=== PATIENT | female | born 1945 | race Caucasian/White ===

== ENCOUNTER 2024-04-20 22:07 | Emergency (ER) | payer MEDICAID, SELFPAY ==
[2024-04-20] VITALS (8 sets, daily range): BP systolic 174–212; BP diastolic 61–89
--- NOTE | 2024-04-20 22:58 | ED.GENMED ---
History of Present Illness
General
Chief Complaint: Blood Pressure Problem
Source: patient
Exam Limitations: none
Time Seen by Provider: 04/20/24 22:47
History of Present Illness
History of Present Illness:
See MDM
Past History
Past History
ED Past Medical History: HTN and Hypercholesterolemia
ED Past Surgical History: Appendectomy
Social History
Tobacco: Non-smoker
Alcohol: None
Phy Exam
Physical Exam
Physical Exam:
See MDM
Course
Orders/Labs/Results
Orders:
Orders
04/20/24 22:56
HydrALAZINE [Apresoline] 10 mg IV NOW STA
04/20/24 22:57
Electrocardiogram (*1) Urgent
Reason for Study: Hypertension, Benign
CT Head W/o Iv Contrast Urgent
Comment:
Reason For Exam: Dizzy, headache
EKG- Treatment ONCE
04/20/24 23:14
Complete Blood Count/With Diff Urgent
Comprehensive Metabolic Panel Urgent
Troponin I Urgent
04/21/24 00:17
Lorazepam [Ativan] 1 mg IV NOW STA
Abnormal Lab Results
04/20/24
23:14
Hct 35.9 L %
(37.0-47.0)
MCV 80.9 L fL
(81.0-99.0)
Carbon Dioxide 31 H mmol/L
(22-30)
BUN 34 H mg/dl
(7-17)
Glucose 126 H mg/dl
(70-99)
04/20/24 23:14
04/20/24 23:14
Vital Signs
Initial and Last Documented VS:
Initial Vital Signs
Temp Pulse Resp BP Pulse Ox
97.8 F 67 16 212/89 98
04/20/24 22:11 04/20/24 22:11 04/20/24 22:11 04/20/24 22:11 04/20/24 22:11
Last Documented Vital Signs
Temp Pulse Resp BP Pulse Ox
97.8 F 63 16 154/70 95
04/20/24 22:11 04/21/24 00:49 04/21/24 00:49 04/21/24 00:49 04/21/24 00:49
MDM/Problems Addressed
Differential Diagnosis Includes:
HPI and MDM Narrative:
79-year-old female presenting for evaluation of dizziness and high blood pressure. Daughter at bedside indicating that she has been under a lot of stress recently. Blood pressure at home was 220/110. It remained elevated on arrival to the
emergency department. She is already on 3 antihypertensive medicines (Lisinopril, HCTZ, Metoprolol). Will, blood pressure is improving and patient states her dizziness and headache have improved.
There was no cerebellar signs on exam. No reproducible dizziness with [place]. Will obtain basic blood work, CT head, EKG and give a dose of hydralazine. Will consider writing a as needed hydralazine dose until they can speak to the PCP to
further evaluate the blood pressure
Physical exam
General: Well appearing and non-toxic
HEENT: protecting airway. EOMI. No nystagmus
Neck: supple
CV: No evidence of cyanosis. Regular rate and rhythm
Resp: No accessory muscle use
Abd: Non-distended
Extremities: No deformities. No leg edema
Neuro: alert. Normal [id number] bilaterally
Psych: Normal affect
Skin: Intact
Problems Addressed including Acute and Chronic Conditions affecting care:
1. Hypertension
Acuity: acute
Prognosis: stable
Details: Symptoms appear to be improving. Will give dose of hydralazine and obtain basic blood work to rule out endorgan damage
2. Dizziness
Acuity: acute
Prognosis: stable
Details: Will obtain CT head to rule intracranial hemorrhage given the hypertension and bradycardia
Updates
Other than mild elevated BUN, rest of the blood work without clinical significance and CT head is negative. On reevaluation after hydralazine, the blood pressure did spike back up she became shaky and tremulous. Will give dose of Ativan
On reassessment after Ativan, all symptoms resolved. Patient feels much better. Daughter believes this could be anxiety related. I will write for short prescription of Ativan as needed. Regardless of the fact that it helped, she needs to follow
to discuss her blood pressure and her mental health. Daughter agrees
Differential Diagnosis (but not limited to): Vertigo, dehydration, anxiety, hypertension
Testing considered: Urinalysis
Drug therapy (if applicable): OTC meds, please see d/c instruction regarding Rx drugs
Amount and/or Complexity of Data Reviewed
Clinical info obtained from: Patient. Daughter states she has been under a lot of stress recently
External data reviewed: N/A
Labs I independently reviewed (but not limited to): Troponin normal
Radiology: The CT scan was personally and independently reviewed. In addition, official CT report reviewed.
Pulse Ox: not hypoxic
EKG independently reviewed: Sinus rhythm, normal axis, no STEMI
Housing Specialist: N/A
Critical Care: N/A
Risk of Complication:
Social Determinants of health: Good social support
Discussed with other providers: N/A
Escalation of Care includes Admit/Obs: After being observed in the Emergency Department, pt stable for discharge.
Occasional wrong word or 'sound a like' substitutions may have occurred due to the inherent limitations of voice recognition software. Read the chart carefully and recognize, using context, where substitutions have occurred.
*Critical Care Note
Total Time (30-74mins, 75-104mins- exclusive of procedures): Not Applicable
ED Attending Note
-
Portions of this chart may have been created with voice recognition software.� Occasional wrong word or��sound alike� substitutions may have occurred due to the inherent limitations of voice recognition software.
Discharge Plan
Departure
Patient Disposition: Home (Routine Discharge)
Date of Disposition: 04/21/24
Time of Disposition: 01:07
Patient with high blood pressure during this ER visit?: Yes
Discharge Problem:
HTN (hypertension)
Instructions: High Blood Pressure (DC), BLOOD PRESSURE
Prescriptions:
New
lorazepam [Ativan] 1 mg tablet
1 mg PO BID PRN (Reason: Anxiety) Qty: 14 0RF
No Action
losartan 25 mg Tablet
25 mg PO DAILY
hydrochlorothiazide 25 mg Tablet
25 mg PO DAILY
metoprolol succinate
25 mg PO
Referrals:
Eli Junior MD [Family Provider] -
Activity Restrictions/Additional Instructions:
Please return for any worsening symptoms.
You may return at any time if you have further concerns.
Please follow up with your doctor at the first available appointment, preferably this week.
You need to discuss your uncontrolled blood pressure and your anxiety.
Thank you for choosing [facility].
Interventions
Interventions:
*Risk Screen - Suicide Last Done: 04/20/24 22:11
*General Assessment Last Done: 04/20/24 22:11
*Neglect/Abuse Screening Last Done: 04/20/24 22:11
ED- Fall Risk Assessment Last Done: 04/20/24 22:11
*ED COVID-19 Vaccine History Last Done: 04/20/24 22:11
ED- Cardiac Assessment Last Done: 04/20/24 23:37
ED- Neurological Assessment Last Done: 04/20/24 23:37
ED- Pulmonary Assessment Last Done: 04/20/24 23:37
Discharge Date and Time
Print Language: TANZANIAN
[2024-04-20] MEDS: APRESOLINE 10 MG IV (23:22)
[2024-04-20 23:26] LABS: % Basophils 0.5 % (0-2); % Eosinophils 0.3 % (0-6); % Immature Granulocytes 0.5 % (0-0.5); % Lymphocytes 27.4 % (20.5-51.1); % Monocytes 7.2 % (1.7-9.3); % Neutrophils 64.1 % (42.2-75.2); Absolute Lymphocytes 1.7 10^3/uL (1.2-3.4); Absolute Monocytes 0.5 10^3/uL (0.1-0.6); Hematocrit 35.9 % (37.0-47.0); Hemoglobin 12.2 g/dL (12.0-16.0); Mean Corpuscular Hgb 27.5 pg (27.0-31.0); Mean Corpuscular Volume 80.9 fL (81.0-99.0); Mean Platelet Volume 9.4 fL (7.4-10.4); Nucleated Red Blood Cells % 0 %; Platelet Count 246 10^3/uL (130-400); Red Blood Cell Count 4.44 10^6/uL (4.20-5.40); Red Cell Dist. Width 13.6 % (11.5-14.5); White Blood Cell Count 6.2 10^3/uL (4.8-10.8)
[2024-04-20 23:47] LABS: ALT (SGPT) 20 U/L (0-35); AST (SGOT) 23 U/L (14-36); Albumin 4.6 g/dl (3.5-5.0); Alkaline Phosphatase 71 U/L (38-126); Blood Urea Nitrogen 34 mg/dl (7-17); Calcium 10.2 mg/dl (8.4-10.2); Carbon Dioxide 31 mmol/L (22-30); Chloride 98 mmol/L (98-107); Glucose 126 mg/dl (70-99); Potassium 4.5 mmol/L (3.5-5.1); Sodium 138 mmol/L (135-145); Total Bilirubin 0.7 mg/dl (0.2-1.3); Total Protein 6.8 g/dl (6.3-8.2); eGFR > 60.00
[2024-04-20 23:59] LABS: Troponin I < 0.012 ng/ml
[2024-04-21] VITALS (8 sets, daily range): BP systolic 137–193; BP diastolic 55–99; BMI 40.8
[2024-04-21] MEDS: ATIVAN 1 MG IV (00:21)
== END 2024-04-21 01:38 | disposition home or self-care (01) ==
LOC: EMR 22:07
PROVIDERS: EMERGENCY PHYSICIAN Student in an Organized Health Care Education/Training Program; FAMILY PHYSICIAN Internal Medicine
DX: I10 Essential (primary) hypertension (principal); R42 Dizziness and giddiness; R51.9 Headache, unspecified; E78.00 Pure hypercholesterolemia, unspecified; Z73.3 Stress, not elsewhere classified
CPT/HCPCS: 99285; 96374; 96375; 70450; 80053; 84484; 85025; 93005

== ENCOUNTER 2024-10-22 01:15 | Inpatient (IN) | payer MEDICAID, SELFPAY ==
[2024-10-21 19:07] VITALS: BP 116/69
[2024-10-21 20:50] VITALS: BMI 41.0
--- NOTE | 2024-10-21 21:11 | ED.GENMED ---
History of Present Illness
General
Chief Complaint: Musculo-Skeletal Complaint
Time Seen by Provider: 10/21/24 20:49
History of Present Illness
History of Present Illness:
Patient presents with swelling to the left leg. Notes that she had injections in the left knee 3 weeks ago. Today she noticed that the leg was more swollen and tight. She denies any pain in the leg. Denies any fevers or chills.
Past History
Past History
ED Past Medical History: HTN and Hypercholesterolemia
ED Past Surgical History: Appendectomy
Social History
Tobacco: Non-smoker
Alcohol: None
Phy Exam
Physical Exam
Physical Exam:
General: No acute distress
Head: NCAT
Neck, Normal in appearance, no swelling
Respiratory: No Respiratory distress
Abdomen: No distension
Ext: Left lower extremity is diffusely swollen with some discoloration and darkening. Palpable pedal pulses. Sensation is intact to light touch. There is no significant joint effusion. There is no tenderness or pain with range of motion of the
knee
Neuro: GARCIA, AOx4
Psych: Normal affect
Skin: Normal color
Course
Orders/Labs/Results
Orders:
Orders
10/21/24 19:15
US Periph Venous LOWER Ext LT Urgent
Comment:
Reason For Exam: swelling, pain
10/21/24 21:13
Knee, Left 4 or More Views [CR Knee - Left 4 Or More View*] Urgent
Comment:
Reason For Exam: swelling
10/21/24 23:55
Complete Blood Count/With Diff Urgent
Comprehensive Metabolic Panel Urgent
PTT Urgent
Comment: Obtain baseline before beginning heparin infusion if not already collected
Prothrombin Time Urgent
10/22/24 00:19
Heparin 7,600 units IV NOW STA
10/22/24 00:20
Notify MD As Directed
Notify physician if: Call provider for further orders if PTT is greater than or equal to 200 per heparin
infusion protocol.
Nursing to Place Non Medication Order As Directed
Physician Order: PTT 6 hours after initial start of Heparin infusion
Above order entered?: Yes
10/22/24 00:27
Heparin 7,600 units IV PRN PRN
10/22/24 00:28
Heparin 3,800 units IV PRN PRN
10/22/24 00:30
CT Chest/abd/pelvis Angio W/wo Urgent
Comment:
Reason For Exam: Please do venous phase. occlusive dvt in lle
Heparin 37669 Units/250 ml 25,000 units in 250 ml IV PER PROTOCOL
Weight to be used for heparin protocol in kilograms (kg):: 95.254
Protocol:: DVT/PE
PTT Goal Range to be used:: PTT 73 to 111 seconds
Order type:: Initial
INITIAL Infusion Dose (UNITS/KG/hr) & then follow protocol:: 18 units/kg/hr
Infusion Dose in UNITS/hr & then follow protocol (UNITS/hr):: 1,700
INFUSION RATE in mL/hr & then follow protocol (mL/hr):: 17
For DVT/PE algorithm, re-bolus for low PTT?: Yes
PTT less than or equal to 64 seconds:: Re-bolus 80 units/kg (max 10,000units). Increase by 400 units/hr
(+ 4mL/hr)
PTT 64.1 to 72.9 seconds:: Re-bolus 40 units/kg (max 5,000 units). Increase by 200 units/hr
(+ 2mL/hr)
PTT 73 to 111 seconds:: Target Range. No change in rate.
PTT 111.1 to 130.9 seconds:: Decrease rate by 200 units/hr (- 2 mL/hr)
PTT 131 to 199.9 seconds:: HOLD for 1 hr. Then decrease by 300 units/hr (- 3mL/hr)
PTT greater than or equal to 200 seconds:: HOLD for 2 hrs & Notify Provider. Then decrease by 400 units/hr
(- 4mL/hr)
Lab follow-up:: Each change, PTT q6h until 2 consecutive are therapeutic. Then
PTT daily.
10/22/24 01:00
Flush (0.9% Sodium Chloride) [Flush (Nss)] See Dose Instructions IV PER PROTOCOL
10/22/24 01:03
Admit/Transfer Patient As Directed
Co-Sign Provider:
Level of Care: Inpatient admission
Assign to:: Medical/Surgical
Physician / Group: hospitalist
Diagnosis: LLE DVT
Reason for Hospitalization: extensive DVT in the LLE
Expected length of stay greater than two midnights?: Yes
ELOS- Estimated Length of Stay in days: 2
I certify the patient meets the requirements for IP care: Yes
PRN Pain Medication Management As Directed
May give lesser potent ordered pain med per pt: Yes
preference::
Protocol:: Medication orders for pain may be administered in a
manner that supports deferring to patient preference
when the pt is:
- Requesting an ordered lesser potent pain medication.
Least to most potent pain medications are defined
as: acetaminophen < NSAID < tramadol < opioids
(morphine, oxycodone, hydromorphone).
- Requesting a lesser dose of the same medication IF
ORDERED.
- Requesting a less intrusive route of administration
if both routes are prescribed by the provider (PO <
IV).
10/22/24 01:04
Code Status As Directed
Resuscitation Status: Full Code
10/22/24 01:12
COVID-19 Antigen Routine
Source: Nasal Swab
10/22/24 06:43
PTT Urgent
Abnormal Lab Results
10/22/24
00:01
RBC 3.59 L 10^6/uL
(4.20-5.40)
Hgb 10.1 L g/dL
(12.0-16.0)
Hct 30.7 L %
(37.0-47.0)
MCHC 32.9 L g/dL
(33.0-37.0)
Carbon Dioxide 31 H mmol/L
(22-30)
BUN 34 H mg/dl
(7-17)
Creatinine 1.3 H mg/dL
(0.6-1.0)
Glucose 160 H mg/dl
(70-99)
AST 37 H U/L
(14-36)
10/22/24 00:01
10/22/24 00:01
Vital Signs
Initial and Last Documented VS:
Initial Vital Signs
Temp Pulse Resp BP Pulse Ox
97.9 F 87 18 116/69 96
10/21/24 19:07 10/21/24 19:07 10/21/24 19:07 10/21/24 19:07 10/21/24 19:07
Last Documented Vital Signs
Temp Pulse Resp BP Pulse Ox
97.9 F 75 15 164/68 96
10/21/24 19:07 10/22/24 01:21 10/22/24 01:21 10/22/24 01:20 10/22/24 00:55
*Critical Care Note
Total Time (30-74mins, 75-104mins- exclusive of procedures): Not Applicable
ED Attending Note
ED Attending Note
ED Attending Note:
Patient being admitted for occlusive DVT in all the visible deep veins in the LLE
she has a hx of HTN/HLD . no hx of dvt
presented with L leg swelling. Had cortisone injection 3 weeks ago. No obvious precipitating factors otherwise
She is hemodynamically stable
the leg is slightly reddish appearing but she is having no pain or ischemic symptoms
has palpable pedal pulses
she is being admitted on a heparin drip. Discussed with Dr. Loving diamond die polisher for vascular surgery. Recommending CTA chest abd/pelv to assess clot burden
-
Portions of this chart may have been created with voice recognition software.� Occasional wrong word or��sound alike� substitutions may have occurred due to the inherent limitations of voice recognition software.
Discharge Plan
Departure
Patient Disposition: Admit
Date of Disposition: 10/22/24
Time of Disposition: 00:31
Presentation/result/management discussed w/ accepting MD/DO: Hospitalist
Discharge Problem:
DVT of leg (deep venous thrombosis)
Interventions
Interventions:
*Risk Screen - Suicide Last Done: 10/21/24 21:34
*General Assessment Last Done: 10/21/24 19:09
*Neglect/Abuse Screening Last Done: 10/21/24 21:34
*ED- Fall Risk Assessment Last Done: 10/21/24 19:09
*ED COVID-19 Vaccine History Last Done: 10/21/24 19:09
ED-Musculoskeletal Assessment Last Done: 10/21/24 20:51
[2024-10-21 22:01] VITALS: BP 137/62
[2024-10-21 23:47] VITALS: BP 122/55
[2024-10-22] VITALS (13 sets, daily range): BP systolic 118–168; BP diastolic 53–81; BMI 33.9; BMI 38.2
[2024-10-22 00:31] LABS: ALT (SGPT) 33 U/L (0-35); AST (SGOT) 37 U/L (14-36); Albumin 4.2 g/dl (3.5-5.0); Alkaline Phosphatase 73 U/L (38-126); Blood Urea Nitrogen 34 mg/dl (7-17); Calcium 9.9 mg/dl (8.4-10.2); Carbon Dioxide 31 mmol/L (22-30); Chloride 100 mmol/L (98-107); Estimated Creatinine Clearance 36 ml/min; Glucose 160 mg/dl (70-99); Potassium 4.2 mmol/L (3.5-5.1); Sodium 138 mmol/L (135-145); Total Bilirubin 0.7 mg/dl (0.2-1.3); Total Protein 6.4 g/dl (6.3-8.2); eGFR 41.83
[2024-10-22 00:33] LABS: % Basophils 0.5 % (0-2); % Eosinophils 1.3 % (0-6); % Immature Granulocytes 0.4 % (0-0.5); % Lymphocytes 26.2 % (20.5-51.1); % Monocytes 7.9 % (1.7-9.3); % Neutrophils 63.7 % (42.2-75.2); Absolute Eosinophils 0.1 10^3/uL (0-0.7); Absolute Monocytes 0.6 10^3/uL (0.1-0.6); Absolute Neutrophils 4.8 10^3/uL (1.4-6.5); Hematocrit 30.7 % (37.0-47.0); Hemoglobin 10.1 g/dL (12.0-16.0); INR 1.02; Mean Corp Hgb Conc. 32.9 g/dL (33.0-37.0); Mean Corpuscular Hgb 28.1 pg (27.0-31.0); Mean Corpuscular Volume 85.5 fL (81.0-99.0); Mean Platelet Volume 9.7 fL (7.4-10.4); Nucleated Red Blood Cells % 0 %; PT 13.7 Sec (11.4-14.6); Platelet Count 159 10^3/uL (130-400); Red Blood Cell Count 3.59 10^6/uL (4.20-5.40); White Blood Cell Count 7.6 10^3/uL (4.8-10.8)
[2024-10-22 00:34] LABS: APTT 30.9 Sec (23.4-35.0)
--- NOTE | 2024-10-22 00:34 | HPS.HSE ---
Family Physician
-
Family Physician: Hector Bermeo
Chief Complaint
-
Left leg swelling
History of Present Illness
This is a 79-year-old female with past medical history of hypertension on presenting to the emergency department with acute swelling of the left leg.
Patient was in usual state of health up until symptoms began today. Apparently yesterday she spent about 6 hours sitting down watching TV which is atypical for her. She then notices the swelling that started this morning associated with some mild
mottling of the skin. She reports mild numbness and tingling. She denies any calf tenderness. She denies having any fevers or chills. Patient initially denies any chest pain or shortness of breath. She denies any lightheadedness or dizziness.
When the daughter reported that she has to come to the emergency department she apparently became a little bit anxious and was slightly dizzy. However this resolved. Patient denies any history of DVTs. She denies any recent travels. She has no
recent cold flulike symptoms. She has no history of malignancy but has not had any recent colonoscopies. She reports that she gets mammograms and she has been cleared from that perspective. She has no smoking history.
In the emergency department she was afebrile and hemodynamically stable with oxygen saturation of 97% on room air.
She had a ultrasound which shows occlusive thrombosis of all the visualized left lower extremity veins involving the external iliac, common femoral, femoral, popliteal peroneal posterior tibial and saphenofemoral junction.
Medical History
Past Medical History
Past Medical History: Reports HTN
Past Surgical History: Reports Appendectomy
Social History
Tobacco: Non-smoker
Alcohol: None
Drug: None
Personal: Single
Living: With Family
Employment: Retired
Family History
Family History: Not pertinent
Allergies / Home Medications
Allergies reflects when Allergies were last updated in [employer].
Home Medications with original date entered in [employer]
Allergy/Medication List:
Allergies
Allergy/AdvReac Type Severity Reaction Status Date / Time
No Known Allergies Allergy Verified 04/20/24 22:09
Home Medications
hydrochlorothiazide 25 mg tablet 25 mg PO DAILY
lorazepam 1 mg tablet (Ativan) 1 mg PO BID PRN Anxiety
losartan 100 mg tablet 25 mg PO DAILY
metoprolol succinate 50 mg PO
Review of Systems
-
Constitutional: Reports No Symptoms
EENT: Reports No Symptoms
Respiratory: Reports No Symptoms
Cardiac: Reports No Symptoms
Abdomen/GI: Reports No Symptoms
: Reports No Symptoms
Musculoskeletal: Reports Edema
Skin: Reports No Symptoms
Neurological: Reports No Symptoms
Endocrine: Reports No Symptoms
Hematologic/Lymphatic: Reports No Symptoms
Psych: Reports No Symptoms
Physical Exam
Vital Signs
Vital Signs
Temp Pulse Resp BP Pulse Ox
97.9 F 61 16 122/55 97
10/21/24 19:07 10/21/24 23:47 10/21/24 23:47 10/21/24 23:47 10/21/24 23:47
Physical Exam
General: Well Developed, Well Nourished, No Apparent Distress and Comfortable
HEENT: NormoCephalic, Anicteric, Moist mucous membranes and Atraumatic
Respiratory: Clear
Cardiac: S1/S2 and Regular Rhythm
Breast: Deferred by me
GI: Soft, Non Tender, Non Distended and Normal Bowel Sounds
Rectal: Deferred by Provider
Genito-urinary: Deferred by me
Musculoskeletal: No Clubbing, No Cyanosis, Edema, Left Lower Extremity (Non-pitting edema and swelling, no calf tenderness. Mild numbness to palpation. Normal warmth with slight erythema. ) and No Edema
Skin: Warm
Neuro: AO x 3 and Nonfocal/grossly intact
Hematologic/Lymphatic: No Lymphadenopathy
Psych: Calm
Laboratory Results
-
10/22/24 00:01
10/22/24 00:01
Laboratory Results
Total Bilirubin 0.7 mg/dl (0.2-1.3) 10/22/24 00:01
AST 37 U/L (14-36) H 10/22/24 00:01
ALT 33 U/L (0-35) 10/22/24 00:01
Alkaline Phosphatase 73 U/L (38-126) 10/22/24 00:01
Data Reviewed
-
Ultrasound: Report Reviewed by me
Lab Data: Labs Reviewed by me
Old Records: Reviewed
Impression/Plan
-
IMPRESSION:
79 y.o female with extensive L lower extremity DVT involving all the veins of the extremity. No apparent symptom on the right. HD stable. Denies SOB, chest pain, palpitations or lightheadedness. No recent travels. No flu like symptoms. No new
medications. No recent surgeries, injuries or hospital stays. She reportedly sat for 6 hours 1 day ago but otherwise is generally mobile. No family history of blood clots. No personal history of any malignancy.
PLAN:
1. Extensive LLE DVT - Pulses intact and no current Cerulea dolens as she has no tenderness to touch, no constant severe aching pain and minimal skin changes. Given findings on U/S patient may have more extensive clot burden and possibly May
Thurner syndrome. No symptoms c/w PE on presentation.
- admit to med/surg for now
- IV heparin
- CT PE and possible CT angio of abd/pelvis with venous runoff
- Vascular consultation
- check covid [address] ag
- CT a/p as above for may thurner
- may need hypercoagulable w/u as outpatient given extensive burden w/o risk factors
- hematology consultation
- will continue her hctz, losartan and metoprolol for now
- mammogram seems uptodate, outpatient colonoscopy recommended, CT chest will evaluate for any lung nodules
Code Status - Full code
[2024-10-22] MEDS: HEPARIN 7600 UNITS IV (00:37)
[2024-10-22] MEDS: HEPARIN 25000 UNITS/250 ML IV (00:43)
[2024-10-22 02:09] LABS: COVID-19 Antigen Negative (Negative)
--- NOTE | 2024-10-22 05:59 | W.PN.HOSP.TC ---
Today's Communication/Plan
-
see a/p
Assessment / Plan
Assessment / Plan
Physical Exam
General: Well Developed, Well Nourished, No Apparent Distress and Comfortable
HEENT: NormoCephalic, Anicteric, Moist mucous membranes and Atraumatic
Respiratory: Clear
Cardiac: S1/S2 and Regular Rhythm
GI: Soft, Non Tender, Non Distended and Normal Bowel Sounds
Musculoskeletal: No Clubbing, No Cyanosis, Edema, Left Lower Extremity Non-pitting edema and swelling, no calf tenderness. Mild numbness to palpation. Normal warmth with slight erythema.
Skin: Warm
Neuro: AO x 3 and Nonfocal/grossly intact
Hematologic/Lymphatic: No Lymphadenopathy
Psych: Calm
79 y.o female with extensive L lower extremity DVT involving all the veins of the extremity. No apparent symptom on the right. HD stable. Denies SOB, chest pain, palpitations or lightheadedness. No recent travels. No flu like symptoms. No new
medications. No recent surgeries, injuries or hospital stays. She reportedly sat for 6 hours 1 day ago but otherwise is generally mobile. No family history of blood clots. No personal history of any malignancy.
PLAN:
#Extensive LLE DVT - Pulses intact and no current Cerulea dolens as she has no tenderness to touch, no constant severe aching pain and minimal skin changes. Given findings on U/S patient may have more extensive clot burden and possibly May Thurner
syndrome. No symptoms c/w PE on presentation.
- IV heparin
- CT chest/abd/pelvis appreciated no PE, extensive thrombus Lt common/internal/external iliac and common/superficial femoral veins, borderline aneurysm ascending aorta 4 cm, possible age indeterminate renal ischemia/ATN b/l, duodenal diverticulum,
left renal cysts, 0.3 cm subpleural Rt middle lobe nodule.
- Vascular consultation appreciated planned for OR today left lower extremity catheter directed venous thrombolysis
- covid 19 neg
- may need hypercoagulable w/u as outpatient given extensive burden w/o risk factors
- hematology consultation
- will continue her hctz, losartan and metoprolol for now
- mammogram seems uptodate, outpatient colonoscopy recommended, CT chest will evaluate for any lung nodules
dvt ppx hep gtt
Code Status - Full code
discussed with patient and patient's daughter Jaycee who provided Indonesian translation.
I spent a total of 50 minutes with the patient or on the floor. More than 50% of this time involved counseling and coordination of care.
Anticipated Discharge: > 48 hours
Subjective/Interval History
-
Date of Service: October 22, 2024
no acute distress resting comfortably in bed. Daughter Jaycee at bedside providing Indonesian translation.
Objective Data
-
Labs:
Laboratory Results
10/22/24 10/22/24 10/22/24
00:01 06:00 06:43
WBC 7.6
Hgb 10.1 L
Hct 30.7 L
Plt Count 159
PT 13.7
INR 1.02
APTT 30.9 Pending
Sodium 138 Pending
Potassium 4.2 Pending
Chloride 100 Pending
Carbon Dioxide 31 H Pending
BUN 34 H Pending
Creatinine 1.3 H Pending
Glucose 160 H Pending
Calcium 9.9 Pending
Total Bilirubin 0.7
AST 37 H
ALT 33
Alkaline Phosphatase 73
Vital Signs:
Vital Signs
Temp Pulse Resp BP Pulse Ox
97.9 F 76 19 161/65 94
10/21/24 19:07 10/22/24 02:15 10/22/24 02:15 10/22/24 02:00 10/22/24 02:15
[2024-10-22 07:31] LABS: APTT > 200 Sec (23.4-35.0)
--- NOTE | 2024-10-22 08:03 | W.PN.UPDATE ---
Update Note
Progress Note Update
Seen and evaluated with NENA Vallejo and NENA Saavedra. Full consultation to follow. Initially we started with the reporting coordinator line, however patient's daughter walked in and patient elected to have her daughter translate. Interpretation was fully offered
but patient declined. 79-year-old female who on Tuesday 2 days ago had been sitting and at recliner/chair for extended period of time (6 hours or so) and when she got up she noted pain in her left calf. Continued through the next day and the
daughter noted discoloration as well as swelling. Therefore presented to the hospital yesterday. Patient denies any prior history of DVT. No history of any malignancies that she is aware of. No history of PEs prior. No family history of DVTs
that they are aware of. Cardiovascular risk factors include hypertension. Denies any history of tobacco use.
Patient fairly active on a normal basis, although has been slightly less active recently secondary to knee issues. But generally fairly active.
On exam/she is awake and alert. Head is normocephalic and atraumatic. Eyes are anicteric. Neck is soft jugular venous distention. Breathing is unlabored. 2+ upper extremity radial pulses palpable bilaterally. Abdomen is soft, nondistended,
nontender. Groins are flat bilaterally. No masses. 2+ femoral pulses palpable bilaterally. Feet are warm with 2+ DP pulses palpable bilaterally. Left calf and thigh moderate edema/swelling, moderately full. Compartments are soft still. No
significant tenderness.
Duplex and CT scan imaging reviewed.
Plan Left lower extremity extensive DVT including iliofemoral DVT. Likely may Thurner compression. May be provoked versus unprovoked. She was sedentary for long period time, but no distinctive provoking factors per se otherwise. Regardless at
this point would recommend anticoagulation continuation as a first-line. I discussed with the patient and her daughter extensively recommendation for catheter directed thrombolysis/mechanical thrombectomy in the setting of iliofemoral DVT and the
benefit and reduction of post thrombotic syndrome symptoms. Discussed the other alternative of continued anticoagulation with compression therapy. Discussed procedural aspects of catheter directed thrombolysis. Did discuss contraindications to
thrombolysis of which she denies all. She denies any history of intracranial bleeds/aneurysms, strokes, GI bleeds, postmenopausal bleeding, urinary tract bleeding, recent major surgeries. Discussed anticipated outcomes of thrombolysis. Discussed
need for likely staged/repeated imaging in the operating room (repeated angiography after catheter directed thrombolysis, with potential for angioplasty/stenting). They understand all unlikely wish to proceed. Likely plan left lower extremity
ascending venogram and initiation of catheter directed thrombolysis. Patient and her daughter to discuss this over and will formally let us know their decision.
--- NOTE | 2024-10-22 08:05 | CON.VAS ---
Consultation
Consultation Request
Performing Provider: Frandy
Reason for Consultation: Left lower extremity DVT
Medical History
-
Chief Complaint: Left lower extremity swelling
History of Present Illness:
79-year-old female with past medical history significant for hypertension and high cholesterol here with left lower extremity DVT. Patient is Estonian-speaking, daughter at bedside to translate. Daughter states patient was sitting and watching TV
for approximately 6 hours on Tuesday. When the patient stood she noted to have some stiffness in the left leg. Patient's daughter noted the leg to be slightly swollen at that time. Tuesday morning leg remains swollen and stiff the patient was
still able to move as needed. Daughter states by Tuesday evening the leg began to have color changes and increased swelling which led them to our ER.
ER ultrasound showed Extensive occlusive deep venous thrombosis throughout the entire left lower extremity.
Vascular consult for above finding. Patient seen at bedside this a.m. with Dr. Wise and daughter at bedside to translate. Patient denies pain at this time.
Past Medical History
Past Medical History: HTN and Hypercholesterolemia
Past Surgical History: Appendectomy
Social History
Tobacco: Non-Smoker
Living: With Family
Family History
Family History: Reviewed & Not Pertinent
Allergies / Home Medications
Allergy/AdvReac Type Severity Reaction Status Date / Time
No Known Allergies Allergy Verified 04/20/24 22:09
�Medication �Instructions �Recorded �Confirmed �Type
hydrochlorothiazide 25 mg tablet 25 mg PO DAILY 04/21/24 10/22/24 History
lorazepam 1 mg tablet (Ativan) 1 mg PO BID PRN Anxiety #14 tabs 04/21/24 10/22/24 Rx
losartan 25 mg tablet 25 mg PO DAILY 04/21/24 10/22/24 History
metoprolol succinate 25 mg 25 mg PO DAILY 10/22/24 10/22/24 History
tablet,extended release 24 hr
Review of Systems
-
History Source: Patient and Family
All other systems: Negative unless noted
Constitutional: Reports No Symptoms
EENT: Reports No Symptoms
Respiratory: Reports No Symptoms
Cardiac: Reports No Symptoms
Vascular: Denies Leg Pain / Claudication
Abdomen/GI: Reports No Symptoms
: Reports No Symptoms
Musculoskeletal: Reports Muscle Stiffness and Edema (Left lower extremity)
Skin: Reports Other (Left lower extremity mild erythema)
Neurological: Reports No Symptoms
Physical Exam
Vital Signs
Temp Pulse Resp BP Pulse Ox
98.1 F 77 18 168/81 96
10/22/24 07:05 10/22/24 07:05 10/22/24 07:05 10/22/24 07:05 10/22/24 07:05
Lab Results
10/22/24 00:01
Physical Exam
General: No Apparent Distress
HEENT: Normocephalic and Atraumatic
Respiratory: Non Labored Respirations
Cardiac: Negative JVD
GI: Soft and Non Tender
Musculoskeletal: Edema (+1 left lower extremity)
Skin: Warm
Neuro: Awake, Alert and Oriented
Psych: Calm
Pulses: Bilateral Femoral: +2, Bilateral Dorsalis Pedis: +2 and Bilateral Posterior Tibial: +2
Assessment / Plan
-
79-year-old female here with extensive left lower extremity DVT
Plan:
-N.p.o.
-OR today for left lower extremity venous lysis
Data Reviewed
-
Ultrasound: Discussed with Patient and Discussed with Family
Labs: Labs Reviewed by me
[2024-10-22 08:21] LABS: Blood Urea Nitrogen 29 mg/dl (7-17); Calcium 9.5 mg/dl (8.4-10.2); Carbon Dioxide 28 mmol/L (22-30); Chloride 103 mmol/L (98-107); Estimated Creatinine Clearance 40 ml/min; Glucose 116 mg/dl (70-99); Magnesium 2.3 mg/dl (1.6-2.3); Sodium 138 mmol/L (135-145); eGFR 46.05
[2024-10-22] MEDS: COZAAR 100 MG PO (09:15)
--- NOTE | 2024-10-22 10:12 | CON.ONC ---
Addendum entered and electronically signed by Susanna Gasca MD 10/22/24 22:12:
Pt seen and examined by me personally.
Daughter present in room to translate for pt.
Daughter indicates that pt is usually more active but was binge-watching TV prior to onset of symptoms.
Plan is noted for lysis today.
May-Thurner suspected with plan for eventual stent placement. If stent placed, may need only a 3-6 month course of anticoagulation.
If no May-Thurner then I would consider this an unprovoked event and recommend transition to half-dose DOAC prophylaxis after course of full-dose anticoagulation.
Anti-cardiolipin and anti-beta2 glycoprotein antibodies sent but not relevant if event provoked.
Thank you for consult, will follow along with you.
Original Note:
Documented by User: Rhett Koenig MD, Resident 10/22/24 11:24
Impression
Impression
79 Year old Female
Unprovoked DVT
Plan
Plan
- CTA imaging demonstrates extensive occlusive or near occlusive thrombus within the left common iliac, internal iliac, external iliac, common femoral and visualized superficial femoral veins. No thrombus confirmed within the IVC. No evidence for
PE.
- Considering unprovoked at this time, no history of prior DVTs, coagulopathy, recent surgeries, h/o active malignancy
- antiphospholipid ab panel, will follow for results
- Pending discussions with vascular surgeon for thrombectomy today
- Incidental finding of 0.3cm subpleural right middle lobe lung nodule. The [facility] Nodule Advisory [facility] hotline was called with the findings
Patient History
History of Present Illness
79 year old female with a past medical history significant for hypertension, hyperlipidemia, anxiety and obesity. She presented to the emergency room for x2 days of Left Knee/Leg pain and swelling which began after a long period of sitting at
home >6 hours while watching television. She has no recent fevers, chills, weight loss, body aches, shortness of breath, lightheadedness, dizziness, or bruising. She has never had a blood clot before. She has taken long flights and car rides before
without similar symptoms. She is usually more active at home, per her daughter, however she has gained more weight in the last few years and has become progressively more sedentary. There is no family history or personal history of blood clots or
bleeding disorders. She has no history of cancer/malignancies. She has not had any recent colonoscopies. She reports that she gets mammograms regularly and has not had any concerns. She is a nonsmoker.
Past-Medical/Surgical History
PMHx: Hypertension, Hyperlipidemia, Anxiety, Obesity
PShx: Appendectomy
Patient Medication
�Medication �Instructions �Recorded �Confirmed �Last Taken �Type
hydrochlorothiazide 25 mg tablet 25 mg PO DAILY 04/21/24 10/22/24 10/21/24 20:00 History
lorazepam 1 mg tablet (Ativan) 1 mg PO BID PRN Anxiety #14 tabs 04/21/24 10/22/24 Unknown Rx
losartan 25 mg tablet 25 mg PO DAILY 04/21/24 10/22/24 10/21/24 12:00 History
metoprolol succinate 25 mg 25 mg PO DAILY 10/22/24 10/22/24 10/20/24 08:00 History
tablet,extended release 24 hr
Active Medications
Generic Name Dose Route Start Last Admin
Trade Name Freq PRN Reason Stop Dose Admin
Acetaminophen 650 mg 10/22/24 02:33
Acetaminophen 325 Mg Tablet PO 11/19/24 02:32
Q4HPRN PRN
mild pain/BARBOSA/temp> 100.4F
Bisacodyl 10 mg 10/22/24 02:33
Bisacodyl 10 Mg Rectal Suppository RECTAL 11/19/24 02:32
[id number] PRN
constipation
Heparin Sodium 7,600 units 10/22/24 00:27
Heparin 80 Units/Kg Rebolus-Do Not Discard IV 11/19/24 00:26
PRN PRN
PTT < OR = 64 seconds
Heparin Sodium 3,800 units 10/22/24 00:28
Heparin 40 Units/Kg Rebolus-Do Not Discard IV 11/19/24 00:27
PRN PRN
PTT = 64.1 to 72.9 seconds
Hydrochlorothiazide 25 mg 10/22/24 11:00
Hydrochlorothiazide 25 Mg Tablet PO 11/19/24 10:59
DAILY@1100 NELA
Hydromorphone HCl 0.5 mg 10/22/24 09:23
Hydromorphone 0.5 Mg/0.5 Ml Syringe IV 11/05/24 09:22
Q4HPRN PRN
mod severe pain
Heparin Sodium 25,000 units in 250 mls @ 0 mls/hr 10/22/24 00:30 10/22/24 00:43
Heparin 31566 Units/250 Ml IV 250 mls
PER PROTOCOL NELA Administration
Protocol
Per Protocol
Lorazepam 1 mg 10/22/24 02:33
Lorazepam 1 Mg Tablet PO 11/19/24 02:32
BID PRN
Anxiety
Losartan Potassium 100 mg 10/22/24 08:00 10/22/24 09:15
Losartan 100 Mg Tablet PO 11/19/24 07:59 100 mg
DAILY NELA Administration
Metoprolol Succinate 50 mg 10/22/24 18:00
Metoprolol 50 Mg Extended Release Tablet PO 11/19/24 17:59
DAILY@1800 NELA
Ondansetron HCl 4 mg 10/22/24 02:33
Ondansetron 4 Mg/2 Ml Vial IV 11/19/24 02:32
Q6HPRN PRN
nausea and vomiting
Polyethylene Glycol 17 grams 10/22/24 02:33
Polyethylene Glycol Powder 17 Grams Packet PO 11/19/24 02:32
DAILYPRN PRN
constipation
Senna/Docusate Sodium 1 tablet 10/22/24 02:33
Docusate W/Senna (Litzy-Colace) Tablet PO 11/19/24 02:32
BIDPRN PRN
constipation
Sodium Chloride 0 flush 10/22/24 01:00
Sodium Chloride 0.9% (Flush) Syringe IV 11/19/24 00:59
PER PROTOCOL NELA
Review of Systems
-
Unable to obtain full review of systems at this time due to: Language Barrier
History Source: Family
Constitutional: Denies Fever, Weight Gain, Weight Loss, Fatigue, Night Sweats or Chills
EENT: Reports No Symptoms
Respiratory: Reports No Symptoms
Cardiac: Reports No Symptoms
GI: Reports No Symptoms
Breast: Reports No Symptoms
: Reports No Symptoms
Musculoskeletal: Reports Joint Pain, Joint Swelling and Edema; Denies Muscle Pain
Skin: Reports No Symptoms
Neuro: Reports No Symptoms
Endocrine: Reports No Symptoms
Hematologic/Lymphatic: Denies Bleeding, Swollen Glands or Bruising
Allergy / Immunology: Reports No Symptoms
Psych: Reports No Symptoms
Physical Exam
-
General: Well Developed, Well Nourished, No Apparent Distress, Comfortable and Obese
HEENT: Moist Mucous Membranes; Negative Jaundice
Cardiology: Normal Sinus Rhythm, S1, S2 and No Murmur
Pulmonary: Clear; Negative Wheezes, Rales or Rhonchi
GI: Soft and Normal Bowel Sounds
Musculoskeletal: No Clubbing, No Cyanosis and Edema, Left Lower Extrem
Skin: Warm, Dry, IV Access / Catheter Site and No Ecchymosis
Hematologic / Lymphatic: No Lymphadenopathy and No Petechiae
Psych: Calm
Labs
Lab Results
WBC 7.6 10^3/uL (4.8-10.8) 10/22/24 00:01
RBC 3.59 10^6/uL (4.20-5.40) L 10/22/24 00:01
Hgb 10.1 g/dL (12.0-16.0) L 10/22/24 00:
Hct 30.7 % (37.0-47.0) L 10/22/24 00:
MCV 85.5 fL (81.0-99.0) 10/22/24 00:
MCH 28.1 pg (27.0-31.0) 10/22/24 00:
MCHC 32.9 g/dL (33.0-37.0) L 10/22/24 00:
RDW 14.0 % (11.5-14.5) 10/22/24 00:
Plt Count 159 10^3/uL (130-400) 10/22/24 00:
MPV 9.7 fL (7.4-10.4) 10/22/24 00:
Abs Immat Gran (auto) 0.0 10^3/uL (0-0.05) 10/22/24 00:
Absolute Neuts (auto) 4.8 10^3/uL (1.4-6.5) 10/22/24 00:
Absolute Lymphs (auto) 2.0 10^3/uL (1.2-3.4) 10/22/24 00:01
Absolute Monos (auto) 0.6 10^3/uL (0.1-0.6) 10/22/24 00:
Absolute Eos (auto) 0.1 10^3/uL (0-0.7) 10/22/24 00:01
Absolute Basos (auto) 0.0 10^3/uL (0-0.2) 10/22/24 00:
Immature Gran % 0.4 % (0-0.5) 10/22/24 00:
Neutrophils % 63.7 % (42.2-75.2) 10/22/24 00:
Lymphocytes % 26.2 % (20.5-51.1) 10/22/24 00:
Monocytes % 7.9 % (1.7-9.3) 10/22/24 00:01
Eosinophils % 1.3 % (0-6) 10/22/24 00:01
Basophils % 0.5 % (0-2) 10/22/24 00:01
Creatinine 1.2 mg/dL (0.6-1.0) H 10/22/24 06:45
Vital Signs
Vital Signs
Temp Pulse Resp BP Pulse Ox
98.1 F 77 18 168/81 96
10/22/24 07:05 10/22/24 07:05 10/22/24 07:05 10/22/24 07:05 10/22/24 07:05

Documented by User: Susanna Gasca MD 10/22/24 22:07
Impression
Impression
79 Year old Female
Unprovoked DVT, May-Thurner suspected
Plan
Plan
- CTA imaging demonstrates extensive occlusive or near occlusive thrombus within the left common iliac, internal iliac, external iliac, common femoral and visualized superficial femoral veins. No thrombus confirmed within the IVC. No evidence for
PE.
- Considering unprovoked at this time, no history of prior DVTs, coagulopathy, recent surgeries, h/o active malignancy
- antiphospholipid ab panel, will follow for results
- Pending discussions with vascular surgeon for thrombectomy today
- Incidental finding of 0.3cm subpleural right middle lobe lung nodule. The [facility]monary Nodule Advisory Board was notified of the findings
Patient History
Past-Medical/Surgical History
PMHx: Hypertension, Hyperlipidemia, Anxiety, Obesity
PShx: Appendectomy
Social History
Tobacco: Non-smoker
Alcohol: None
Drug: None
Personal: Single
Living: With Family
Employment: Retired
Family History
Family History: Not pertinent
--- NOTE | 2024-10-22 15:15 | PTCARENOTE ---
Pt to the laborer orchard escorted by Supervisor Finish End RN's via bed. Verbal report given. Pt and Pt's daughter instructed on what to expect pre and post operatively. Daughter verbalized understanding of instructions: Pt is Ghanaian Speaking only. Heparin drip was
maintained and not stopped per orders.
--- NOTE | 2024-10-22 15:23 | CM ---
Adm dx - LLE DVT
Initial assessment completed
Pts primary language is Cuban. Met with pt and her daughter at bedside
Pt Lives in a split-level home with her daughter and grandson; 1 CHING/10 steps to 2nd fl
Independent at baseline - no device for ambulation
DME - none
SNF/HH - no past hx
Has ride at d/c
PCP -Hector Bermeo
Pharm - [facility] in [place]
For OR today
Plan - anticipate home no needs
--- NOTE | 2024-10-22 15:27 | PTCARENOTE ---
Received pt from [facility] into [facility]. Pt [id number] Bolivian speaking, daughter at bedside who speaks romanian well. Vital signs stable at time of arrival bp 169/69 HR-81, rr 16, 95% room air. Anesthesia notified to see pt. Will monitor closely.
[2024-10-22] MEDS: ORETIC PO (15:30)
--- NOTE | 2024-10-22 16:38 | W.SUR.PREOP ---
Pre-Operative Surgical Note
-
I have examined this patient prior to the performance of the scheduled procedure.
The patient's condition is unchanged from the time of the current History and
Physical and the patient is able to undergo the scheduled procedure.
--- NOTE | 2024-10-22 18:04 | W.SUR.POST ---
Surgical Immediate Post Op
Note
Pre Op Diagnosis: Left lower extremity DVT
Post Op Diagnosis: Left lower extremity DVT
Procedure Performed: Left lower extremity lysis catheter placement
Primary Surgeon: Tiago Wise MD
Secondary Surgeons: N/A
Anesthesia: MAC
Estimated Blood Loss: 2 mL
Fluids: See anesthesia flowsheet
Drains/Shunts: N/A
Specimens/Cultures: N/A
Doppler/Duplex/Angio (Y/N): Y
Complications: None
Operative Findings: Successful placement of lysis catheter for tPA initiation
--- NOTE | 2024-10-22 18:23 | OR.RPT ---
Operative Report
Operative Report
PROCEDURE DATE: 10/22/2024
Preoperative diagnosis: Acute extensive left lower extremity DVT including iliofemoral DVT.
Postoperative diagnosis: Same
Procedure:
1. Duplex assisted cannulation of left popliteal vein.
2. Ascending left lower extremity venogram and central venogram.
3. Initiation of catheter directed thrombolysis.
Surgeon: Frandy
Jig Grinder Set Up Operator: None
Complications: None
Anesthesia: Local, sedation
Fluoroscopy:
4.1 min
196 mGy
40.21 Gy.cm2
Indications for procedure:
Acute extensive left lower extremity DVT with iliofemoral occlusive thrombus. Extensive discussion was undertaken regarding management and options. Risk/benefit/alternatives of catheter directed thrombolysis/interventions were discussed. Patient
and her family understood all wished to proceed.
Description of procedure:
Patient was identified, brought to the operating room. Placed on the table in the prone position. After the adequate administration of anesthesia, the patient was prepped and draped in the standard surgical fashion. A standard preoperative
timeout was undertaken and everybody was in agreement with the plan.
The left popliteal vein was punctured under direct duplex ultrasound guidance with a micropuncture kit. Through the micropuncture sheath a send venogram was performed that demonstrated successful cannulation of the popliteal vein. Extensive
thrombus through the femoral vein was noted. At this point I exchanged over 0.035 inch wire for a 6 [place]tarian sheath. The patient was given 4000's of intravenous heparin (had prior been on a heparin infusion that had relatively recently been
stopped). Next using a flopping of hydrophilic Glidewire and a glide catheter, I was able to gain wire access into the IVC. Initially had some difficulty in the iliac veins, but was able to traverse the common iliac vein into the IVC. Central
venogram confirmed that the catheter was indeed in the IVC, and confirmed patency of the IVC. At this point I exchanged over Storq wire for a 5 Gibraltarian 50 cm multihole infusion catheter. This was positioned at the junction of the left common iliac
vein and the IVC distally and proximally was positioned in the popliteal/femoral vein just beyond the sheath. Venogram through the catheter confirmed good positioning. I then bolused 6 mg of tPA through the catheter. We then connected to a
continuous infusion drip of tPA at 1 mg/h, and a heparin infusion was initiated through the side arm of the popliteal vein sheath at 500 units/h. The sheath and catheters were secured. We confirmed the dosages/rates of the infusions. The patient
was flipped back to supine positioning onto the bed. She was transported to the ICU in stable/good condition.
The patient tolerated procedure well.
[2024-10-22 18:34] LABS: Glucose - Point of Care 119 mg/dl (70-99)
--- NOTE | 2024-10-22 19:00 | PTCARENOTE ---
Rec'd pt flat in bed w/ HOB on pillow, pt Iranian speaking, dtr at bedside to assist w/ translation, pt denies pain, instructed on bedrest w/ left leg straight, no incr in hob, instructed railroad crossing protection maintainer butler use, demonstrated understanding, 1' AV block, bp
stable, distal pulses via doppler, feet warm bilat, good sensation /movement in feet, Hep gtt at 500 units via popliteal sheath, TPA at 1mg/hr via left popliteal cath, left popliteal site dry, O2 2 liters nc, lungs decr in bases, sat 95, + bowel
sounds, jany sips h20, no n/v, abd obese, baca draining yellow urine
2100- B Tana, AUTOMOBILE REPOSSESSOR aware of ptt result- orders not to titrate hep gtt
[2024-10-22 19:01] LABS: Hematocrit 29.7 % (37.0-47.0); Hemoglobin 9.8 g/dL (12.0-16.0); Platelet Count 160 10^3/uL (130-400)
[2024-10-22 19:12] LABS: INR 1.15
[2024-10-22 19:13] LABS: Fibrinogen 386 MG/DL (199-459)
[2024-10-22] MEDS: HEPARIN 25000 UNITS/250 ML VEN SHEATH (19:18)
[2024-10-22] MEDS: NSS 1000 INF CATH (19:21)
[2024-10-22] MEDS: CATHFLO/ACTIVASE 16 MG INF CATH ×2 (19:22→22:04)
[2024-10-22] MEDS: CATHFLO/ACTIVASE 16 ML INF CATH ×2 (19:22→22:04)
[2024-10-22] MEDS: TOPROL XL 50 MG PO (19:24)
[2024-10-22] MEDS: NSS 1000 IV (19:24)
[2024-10-22] MEDS: ANCEF 5 IV (19:32)
[2024-10-22 19:33] LABS: APTT > 200 Sec (23.4-35.0)
[2024-10-22] MEDS: TYLENOL 650 MG PO (22:05)
--- NOTE | 2024-10-22 22:14 | PTCARENOTE ---
tylenol 650mg po given for left foot pain
[2024-10-22] MEDS: LIPITOR 20 MG PO (22:30)
[2024-10-22 23:48] LABS: Hematocrit 30.1 % (37.0-47.0); Hemoglobin 10.1 g/dL (12.0-16.0); Platelet Count 157 10^3/uL (130-400)
[2024-10-23] VITALS (29 sets, daily range): BP systolic 101–161; BP diastolic 42–97; BMI 38.2
--- NOTE | 2024-10-23 | PTCARENOTE ---
sys reviewed, changes noted, denies pain, pulses unch, scant amt draige noted on popliteal dsg- B Tana, supervisor beehive kiln aware- will cont to monitor, chg bath done, linens changed, NPO per order
[2024-10-23 00:03] LABS: Fibrinogen 429 MG/DL (199-459); INR 1.09; PT 14.4 Sec (11.4-14.6)
[2024-10-23 00:04] LABS: APTT 62.4 Sec (23.4-35.0)
[2024-10-23] MEDS: CATHFLO/ACTIVASE 16 MG INF CATH ×3 (01:19→09:15)
[2024-10-23] MEDS: CATHFLO/ACTIVASE 16 ML INF CATH ×3 (01:19→09:15)
[2024-10-23] MEDS: ANCEF 5 IV (03:33)
--- NOTE | 2024-10-23 04:08 | PTCARENOTE ---
sys reviewed, changes noted
[2024-10-23] MEDS: NSS 1000 IV (06:03)
[2024-10-23 06:24] LABS: Hematocrit 29.1 % (37.0-47.0); Hemoglobin 9.6 g/dL (12.0-16.0); Mean Corpuscular Hgb 28.3 pg (27.0-31.0); Mean Corpuscular Volume 85.8 fL (81.0-99.0); Mean Platelet Volume 10.4 fL (7.4-10.4); Platelet Count 159 10^3/uL (130-400); Red Blood Cell Count 3.39 10^6/uL (4.20-5.40); White Blood Cell Count 5.1 10^3/uL (4.8-10.8)
[2024-10-23 06:28] LABS: INR 1.08; PT 14.3 Sec (11.4-14.6)
[2024-10-23 06:29] LABS: Fibrinogen 389 MG/DL (199-459)
[2024-10-23 06:50] LABS: ALT (SGPT) 26 U/L (0-35); AST (SGOT) 27 U/L (14-36); Albumin 3.8 g/dl (3.5-5.0); Alkaline Phosphatase 74 U/L (38-126); Blood Urea Nitrogen 28 mg/dl (7-17); Carbon Dioxide 26 mmol/L (22-30); Chloride 106 mmol/L (98-107); Direct Bilirubin 0.1 mg/dl (0.0-0.4); Estimated Creatinine Clearance 46 ml/min; Glucose 149 mg/dl (70-99); Magnesium 2.1 mg/dl (1.6-2.3); Phosphorus 4.5 mg/dl (2.5-4.5); Potassium 4.4 mmol/L (3.5-5.1); Sodium 140 mmol/L (135-145); Total Bilirubin 1.4 mg/dl (0.2-1.3); eGFR 51.11
--- NOTE | 2024-10-23 07:18 | W.PN.HOSP.TC ---
Today's Communication/Plan
-
cont post-op care as per Vascular
ICU monitoring
Assessment / Plan
Assessment / Plan
Physical Exam
General: Well Developed, Well Nourished, No Apparent Distress and Comfortable
HEENT: NormoCephalic, Anicteric, Moist mucous membranes and Atraumatic
Respiratory: Clear
Cardiac: S1/S2 and Regular Rhythm
GI: Soft, Non Tender, Non Distended and Normal Bowel Sounds
Musculoskeletal: No Clubbing, No Cyanosis, Edema, Left Lower Extremity Non-pitting edema and swelling, no calf tenderness. Mild numbness to palpation. Normal warmth with slight erythema.
Skin: Warm
Neuro: AO x 3 and Nonfocal/grossly intact
Hematologic/Lymphatic: No Lymphadenopathy
Psych: Calm
79 y.o female with extensive L lower extremity DVT involving all the veins of the extremity. No apparent symptom on the right. HD stable. Denies SOB, chest pain, palpitations or lightheadedness. No recent travels. No flu like symptoms. No new
medications. No recent surgeries, injuries or hospital stays. She reportedly sat for 6 hours 1 day ago but otherwise is generally mobile. No family history of blood clots. No personal history of any malignancy.
PLAN:
#Extensive LLE DVT - Pulses intact and no current Cerulea dolens as she has no tenderness to touch, no constant severe aching pain and minimal skin changes. Given findings on U/S patient may have more extensive clot burden and possibly May Thurner
syndrome. No symptoms c/w PE on presentation.
- IV heparin
- CT chest/abd/pelvis appreciated no PE, extensive thrombus Lt common/internal/external iliac and common/superficial femoral veins, borderline aneurysm ascending aorta 4 cm, possible age indeterminate renal ischemia/ATN b/l, duodenal diverticulum,
left renal cysts, 0.3 cm subpleural Rt middle lobe nodule.
- Vascular consultation appreciated OR 10/22/24 left lower extremity catheter directed venous thrombolysis initiated 10/23/24 Mechanical Thrombolysis Lt iliac system, balloon angioplasty and stenting left common iliac vein stenosis
- covid 19 neg
- hematology consultation appreciated
HTN
-continue home hctz, losartan, metoprolol with holding parameters
dvt ppx hep gtt
Code Status - Full code
discussed with patient and patient's daughter Jaycee who provided [place] translation.
Total Critical Care Time__40___ minutes. I was immediately available to the patient and staff. I personally examined, reviewed labs, diagnostic images/reports, interpretations, treatment plans, discussed patient care with other providers and
family or caregivers (if patient is unable to make decisions), entered orders as appropriate and documented the medical record.
Anticipated Discharge: > 48 hours
Subjective/Interval History
-
Date of Service: October 23, 2024
no acute distress comfortable. Daughter Jaycee present during evaluation providing [place] translation.
Objective Data
-
Labs:
Laboratory Results
10/22/24 10/22/24 10/22/24
15:45 18:47 23:38
WBC
Hgb 10.1 L
Hct 30.1 L
Plt Count 157
PT 14.4
INR 1.09
APTT Cancelled > 200 H* 62.4 H
Sodium
Potassium
Chloride
Carbon Dioxide
BUN
Creatinine
Glucose
Calcium
Total Bilirubin
AST
ALT
Alkaline Phosphatase
10/23/24 10/23/24 10/23/24
05:00 11:15 17:15
WBC 5.1
Hgb 9.6 L Pending Pending
Hct 29.1 L Pending Pending
Plt Count 159 Pending Pending
PT 14.3 Pending Pending
INR 1.08 Pending Pending
APTT 40.0 H Pending Pending
Sodium 140
Potassium 4.4
Chloride 106
Carbon Dioxide 26
BUN 28 H
Creatinine 1.1 H
Glucose 149 H
Calcium 9.0
Total Bilirubin 1.4 H
AST 27
ALT 26
Alkaline Phosphatase 74
10/23/24
23:15
WBC
Hgb Pending
Hct Pending
Plt Count Pending
PT Pending
INR Pending
APTT Pending
Sodium
Potassium
Chloride
Carbon Dioxide
BUN
Creatinine
Glucose
Calcium
Total Bilirubin
AST
ALT
Alkaline Phosphatase
Vital Signs:
Vital Signs
Temp Pulse Resp BP Pulse Ox
97 F 80 19 139/57 97
10/23/24 04:00 10/23/24 06:01 10/23/24 06:01 10/23/24 06:01 10/23/24 06:01
I&O
10/22/24 10/23/24 10/24/24
06:59 06:59 06:59
Intake Total 1720 / 1720
Output Total 705 / 705
Balance 1015 / 1015
--- NOTE | 2024-10-23 07:55 | CON.INTV ---
Addendum entered and electronically signed by Emy Lowry MD 10/23/24 11:53:
Patient seen and examined independently by myself. Resident note reviewed below, agree with assessment and plan.
History obtained from the patient but majority of history obtained from daughter at bedside who provided as a punch machine hand. Patient was in her usual state of health, had a prolonged sedentary day on Tuesday watching TV for about 6 hours. Shortly
thereafter developed swelling in the left leg with left leg pain. Per history there is no complaints of shortness of breath, pleurisy, lightheadedness, dizziness. No history of prior falls, trauma. Patient presented to [facility] where
she had a CT chest which was unremarkable for pulmonary embolism. Doppler study showed extensive left lower extremity clot. She underwent catheter directed lytic therapy per vascular surgery. Admitted to ICU for further management.
She denies any shortness of breath, chest pain, nausea, abdominal pain. She has had mammograms in the past, has never had a colonoscopy.
There is a family history of blood clots, eldest son with history of recurrent clots. Daughter states that this is likely from being overweight.
No family history of cancer
Patient with distant tobacco history, no significant alcohol history
Family history, social history, medications, review of systems otherwise as below
Patient appears comfortable, vital stable, on room air, lying flat
Chest exam is clear, no murmurs rubs or gallops, abdominal exam soft nontender. She is obese
Lower extremity with venous insufficiency, varicose veins, left lower extremity slightly cooler than right, pulses positive Doppler
Data reviewed
CT chest with small nodule right middle lobe and also small nodule left upper lobe per my review
Creatinine normal, hemoglobin 9.6
A/P
At this time, patient appears to be improved. Left leg pain has improved
For repeat lysis check and possible stent placement based on findings
Reviewed risks of thromboembolic disease with daughter at length at bedside who acted as asset analyst
Although sedentary lifestyle may have predisposed her to this, given family history, would recommend follow-up as outpatient
She also will require CT chest in 1 year given smoking history
Daughter asking does not need to be done sooner
Would recommend follow-up with pulmonary in 2 to 3 months at which time imaging can be discussed in further detail but based on current guidelines, would recommend CT chest in 1 year
Patient is also not had colonoscopy in the past. Mammograms have been negative
Family history noted
Will obtain baseline D-dimer study prior to discharge as this can be followed in the future for prognostic purposes
The above was reviewed at length with patient, daughter at bedside
Discussed with critical care nursing, respiratory care, pharmacy
TCCT 31 min
Original Note:
Consultation
Consultation Request
Date/Time Consultation Requested: 10/22/24
Date/Time Consultation Performed: 10/23/24
Requesting Provider: BRANDON Lee
Performing Provider: Dr. Amor Alfred ; Dr. Emy Lowry
Reason for Consultation: LLE DVT
Medical History
-
Chief Complaint: Left leg swelling
History of Present Illness:
This is a 79-year-old female with known past medical history of hypertension and hypercholesteremia presented to the ED initially with acute swelling of the left leg.
Most of the history is obtained from daughter daughter Jaycee who provided Citizen [place] translation and chart review.
Daughter states that patient is usually active but she was binge watching TV prior to the onset of the symptoms, on 10/21/2024 patient spent around 6-hour sitting watching TV. She experienced acute swelling the next morning with some skin changes.
Patient denies chest pain, shortness of breath, dizziness, however she was very anxious due to pain. She denied any recent travel and no recent sickness. He has no history of any malignancy. No history of smoking.
In the ER she was afebrile and hemodynamically stable.
Ultrasound was performed which showed occlusive thrombus in the left common femoral vein, femoral vein, profunda femoris vein, peroneal vein and posterior tibial vein. There is occlusive thrombus throughout the left greater saphenous vein.
She was started on heparin drip and vascular surgery was consulted. After discussion with the family patient was taken to the OR and successful placement of lysis catheter for TPN initiation.
Patient was brought into the ICU after the procedure and respiratory therapy manager service was consulted for further management.
Past Medical History
Past Medical History: HTN, Hypercholesterolemia and Other (Anxiety, obesity)
Past Surgical History: Appendectomy
Social History
Tobacco: Non-smoker
Alcohol: None
Drug: None
Living: With Family
Employment: Retired
Family History
Family History: Reviewed & Not Pertinent
Allergies / Home Medications
Allergies
Allergy/AdvReac Type Severity Reaction Status Date / Time
No Known Allergies Allergy Verified 04/20/24 22:09
Home Medications
�Medication �Instructions �Recorded �Confirmed �Last Taken �Type
hydrochlorothiazide 25 mg tablet 25 mg PO DAILY 04/21/24 10/22/24 10/21/24 20:00 History
lorazepam 1 mg tablet (Ativan) 1 mg PO BID PRN Anxiety #14 tabs 04/21/24 10/22/24 Unknown Rx
losartan 25 mg tablet 100 mg PO DAILY 04/21/24 10/22/24 10/21/24 12:00 History
atorvastatin 20 mg tablet (Lipitor) 20 mg PO HS 10/22/24 10/22/24 10/20/24 20:00 History
metoprolol succinate 25 mg 50 mg PO QPM 10/22/24 10/22/24 10/20/24 08:00 History
tablet,extended release 24 hr
Review of Systems
-
History Source: Patient
Constitutional: No Symptoms
Respiratory: No Symptoms
Cardiac: No Symptoms
Abdomen/GI: No Symptoms
: No Symptoms
Neuro: No Symptoms
Vitals / Labs / Diagnostic Testing
Vital Signs
Temp Pulse Resp BP Pulse Ox
97 F 80 19 139/57 97
10/23/24 04:00 10/23/24 06:01 10/23/24 06:01 10/23/24 06:01 10/23/24 06:01
Lab Data
10/23/24 05:00
Laboratory Results
10/22/24 10/22/24 10/22/24
15:45 18:47 23:38
PT 15.0 H 14.4
INR 1.15 1.09
APTT Cancelled > 200 H* 62.4 H
10/23/24
05:00
PT 14.3
INR 1.08
APTT 40.0 H
Diagnostic Testing:
Physical Exam
-
HEENT: Moist Mucous Membranes
Cardiovascular: S1/S2 and Regular Rhythm
Respiratory: Clear and Non-Labored Respirations
GI: Soft and Non Distended
Neurology: Awake and Alert
Skin: Warm and Dry
General: Comfortable
Exam:
LLE: +2 edema, no evidence of hematoma Faith at lysis catheter insertion site. Catheter site clear dry and intact. +1 palpable DP pulse
Assessment
-
79-year-old female with extensive left lower extremity DVT, status post Duplex assisted cannulation of left popliteal vein. Ascending left lower extremity venogram and central venogram. Initiation of catheter directed thrombolysis.
# Acute extensive left lower extremity DVT including iliofemoral DVT.
# Anemia
# Elevated serum creatinine
# Hyperglycemia
# Incidental finding of 0.3cm subpleural right middle lobe lung nodule
Plan:
-Vascular following; OR today for lysis catheter check, possible removal, possible placement of stent or angioplasty
-For now continue heparin drip and tPA
-Continue home losartan, HCTZ and metoprolol for blood pressure control
-Anti-cardiolipin and anti-beta2 glycoprotein antibodies sent but not relevant if event provoked.
-Trending fibrinogen level
Data:
CT Chest/abd/pelvis Angio W/wo 10/22/24
IMPRESSION:
Extensive occlusive or near occlusive thrombus within the left common iliac, internal iliac, external iliac, common femoral and visualized superficial femoral veins. No thrombus confirmed within the IVC.
No findings to suggest central pulmonary embolism.
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
Bilateral renal heterogeneity with striated nephrograms. This may reflect sequela of age-indeterminate ischemia/ATN. Infection would be less likely. Suggest correlation with urinalysis.
Additional findings: Duodenal diverticulum and left renal cysts.
0.3 cm subpleural right middle lobe lung nodule. The [facility] Pulmonary Nodule Advisory Board hotline was called with the findings on 10/22/2024 8:24 AM.
Data Reviewed
-
EKG: Report reviewed by me
Radiology: Report reviewed by me
CT Scan: Report reviewed by me
Ultrasound: Report reviewed by me
Labs: Labs reviewed by me, Discussed with Physician and Discussed with Patient
--- NOTE | 2024-10-23 08:02 | W.PN.VS ---
Addendum entered and electronically signed by Velasquez Iverson III, MD 10/23/24 10:15:
Seen and examined with Katy TAYLOR. I agree with the history, physical exam, assessment and plan.
Discussed plan with daughter at bedside as well
OR today for lysis check
[id number]
Original Note:
Today's Communication / Plan
-
Patient seen and examined at bedside with Dr. Velasquez Iverson III, below plan reviewed with attending.
Assessment/Plan
-
Assessment: 79-year-old female with extensive left lower extremity DVT, status post Duplex assisted cannulation of left popliteal vein. Ascending left lower extremity venogram and central venogram. Initiation of catheter directed thrombolysis.
Plan:
OR today for lysis catheter check, possible removal, possible placement of stent or angioplasty
Subjective Data
-
Date of Service: October 23, 2024
Patient seen and examined at bedside, resting in bed comfortably and offers no complaints.
Objective Data
-
Vital Signs
Temp Pulse Resp BP Pulse Ox
97 F 80 19 139/57 97
10/23/24 04:00 10/23/24 06:01 10/23/24 06:01 10/23/24 06:01 10/23/24 06:01
Intake and Output
10/22/24 10/23/24 10/24/24
06:59 06:59 06:59
Intake Total 1720 / 1855 135 / 135
Output Total 705 / 705
Balance 1015 / 1150 135 / 135
Intake:
Oral fluids 100 / 100
IV fluids (Total) 1620 / 1755 135 / 135
HEPARIN 46412 UNITS/250 ML , 5 / 5
000 units In 250 ml @ 500 UNITS
/HR 5 mls/hr FAMILIA SHEATH .Q24H
NELA Rx#:[id number]
Nss 1,000 ml @ 46 mls/hr INF 552 / 598 46 / 46
CATH .[id number] NELA Rx#:[id number]
Nss 1,000 ml @ 80 mls/hr IV . 960 / 1040 80 / 80
[id number] NELA Rx#:[id number]
TPA 48 / 52 4 / 4
Output:
Urine, Iverson 705 / 705
Other:
Number of approximated SMALL 1
amounts of urine
Number of approximated MODERATE 2
amounts of urine
Lab Results
10/23/24 05:00
Calcium 9.0 mg/dl (8.4-10.2) 10/23/24 05:00
Phosphorus 4.5 mg/dl (2.5-4.5) 10/23/24 05:00
Magnesium 2.1 mg/dl (1.6-2.3) 10/23/24 05:00
Total Bilirubin 1.4 mg/dl (0.2-1.3) H 10/23/24 05:00
Direct Bilirubin 0.1 mg/dl (0.0-0.4) 10/23/24 05:00
AST 27 U/L (14-36) 10/23/24 05:00
ALT 26 U/L (0-35) 10/23/24 05:00
Alkaline Phosphatase 74 U/L (38-126) 10/23/24 05:00
Total Protein 6.0 g/dl (6.3-8.2) L 10/23/24 05:00
Albumin 3.8 g/dl (3.5-5.0) 10/23/24 05:00
Physical Exam
-
No apparent distress, resting bed comfortably
No tachycardia
No dyspnea
ABD rotund, nontender, nondistended
Left lower extremity with mild improvement in edema, +2 edema, all soft, no evidence of hematoma at lysis catheter insertion site, catheter site CDI
Left foot warm, +1 palpable DP pulse
[2024-10-23] MEDS: COZAAR 100 MG PO (08:58)
--- NOTE | 2024-10-23 09:52 | PTCARENOTE ---
Pt AAOx3. Neurovascular checks WNL. Doppler pedal pulses. TPA and Heparin per order.
Pt transferred to OR by process laboratory specialist staff in bed.
[2024-10-23] MEDS: ASPIR LOW (ENTERIC COATED) 81 MG PO (12:24)
--- NOTE | 2024-10-23 13:25 | OR.RPT ---
Operative Report
Operative Report
Date of Operation: 10/23/2024
Pre Op Diagnosis:
1. Iliofemoral DVT
2. Left lower extremity DVT
3. Postop day 1 status post initiation of pharmacologic venous thrombolysis
Post Op Diagnosis:
1. Iliofemoral DVT
2. Left lower extremity DVT
3. Postop day 1 status post initiation of pharmacologic venous thrombolysis
Procedure:
1. Diagnostic left lower extremity venogram
2. Diagnostic left iliac venogram
3. Diagnostic venogram, inferior vena cava
4. Mechanical thrombolysis left iliac system using AngioJet Zelante catheter
5. Balloon angioplasty and stenting of left common iliac vein stenosis (Cook Vena 16 mm x 100 mm; post dilated with 16 mm angioplasty balloon)
6. Intravascular ultrasound left femoral vein, left common femoral vein, left external iliac vein, left common iliac vein, inferior vena cava
Surgeon: Velasquez Iverson III, MD
Certified Personal Trainer: James Perez MD PGY1
Anesthesia: Sedation/local
Complications: None
Estimated Blood Loss: 20 cc
History and Indications for Procedure: 79-year-old female status post initiation of venous thrombolysis for extensive iliofemoral/left lower extremity DVT. She was brought back to the operating room today for lysis check and additional endovascular
intervention.
Procedure in Detail: Anita Mauricio was correctly identified and placed supine on the operating table. After adequate induction of anesthesia her left popliteal fossa including the sheath and lysis catheter were prepped and draped in the usual
sterile fashion. A timeout procedure was performed with nursing and anesthesia staff confirming the patient's identity as well as the nature and laterality of the procedure.
I inserted a Bentson wire through the Via lysis catheter and removed it over the wire. The wire was advanced into the inferior vena cava. A venogram was performed through the 6 Malian sheath in the left popliteal fossa and demonstrated
a now patent left popliteal vein, left femoral vein and common femoral vein. No filling defects or stenoses were identified. There was sluggish and limited flow through the left iliac system. I then positioned a glide catheter in the left common
femoral vein and performed a venogram of the left iliac system showing very limited flow and continued occlusion of the left iliac system. I navigated the wire and glide catheter through the iliac occlusion easily and into the IVC. A venogram of
the IVC was performed demonstrating patency.
The patient was bolused with systemic heparin. I upsized to a 9 Malian sheath. I then performed mechanical thrombolysis through the entire left iliac system using the AngioJet Zelante catheter. Multiple passes were made through the entire left
iliac system. Follow-up venogram demonstrated an excellent technical result with clearance of thrombus and patency of the left iliac system reestablished. There was some residual thrombus identified in the region of the left common iliac vein near
the iliac vein confluence.
I then inserted the intravascular ultrasound catheter over the wire. I performed intravascular ultrasound through the left popliteal vein, left femoral vein and left common femoral vein which demonstrated widely patent venous system with no
stenosis or filling defects. I continued to advance the IVUS catheter through the iliac system. The external iliac vein was patent. There was a clear stenosis in the left common iliac vein under the iliac artery consistent with May Thurner. This
area was marked clearly on the screen to assist with subsequent balloon angioplasty and stenting. I advanced the IVUS catheter through the iliac system and into the inferior vena cava which was widely patent. The location of the iliac vein
confluence was identified and marked on the screen. Diameter measurements were obtained using IVUS throughout the common iliac vein and external iliac vein.
I then placed a luna's hook catheter into the inferior vena cava. I pulled the catheter down on the iliac vein confluence and performed a venogram here to clearly identified the iliac vein confluence with fluoroscopy. The Storq wire was
reinserted and positioned in the inferior vena cava.
Using the fluoroscopy images as well as landmarks based on the intravascular ultrasound imaging I brought into position a 16 mm x 100 mm Cook Vena stent. This was positioned and deployed in the desired location. The stent was postdilated with a 16
mm Cullman balloon. Completion venography was performed and demonstrated an excellent technical result. There was brisk flow throughout the left lower extremity venous system and iliac venous system. The stent was widely patent with brisk flow and
no residual stenosis or filling defects identified.
Satisfied with this result we concluded the procedure. All wires and catheters were removed from the 9 Malian sheath in the left popliteal fossa. The sheath was removed and direct manual pressure was held over the puncture site until hemostasis
was achieved. A sterile dressing was applied.
The patient tolerated the procedure well was taken to the recovery room in good condition.
Attestation: I was present and responsible for the entire procedure
Signed:
Velasquez Iverson III, MD
[facility] Vascular Surgery
[phone] (hhqt)
--- NOTE | 2024-10-23 13:31 | PTCARENOTE ---
Pt received back from OR at 1130. Pt AAOx3. Reported right shoulder pain. Denies need from pain meds. Dr Iverson aware. Possible due to positioning in OR. Left lower extremity neurovascular checks WNL. Pedal pulses present via doppler. Left
posterior knee gauze, tegaderm and reta wrap C/D/I. Sinus ronald with 1st degree. HR 50. Heparin gtt per protocol. All other assessments unchanged.
[2024-10-23 14:01] LABS: Hematocrit 28.2 % (37.0-47.0); Hemoglobin 9.5 g/dL (12.0-16.0); Platelet Count 139 10^3/uL (130-400)
[2024-10-23 14:10] LABS: INR 1.31; PT 16.6 Sec (11.4-14.6)
[2024-10-23 14:11] LABS: Fibrinogen 301 MG/DL (199-459)
--- NOTE | 2024-10-23 14:13 | PTCARENOTE ---
Attempted to wean O2. SpO2 86% on room air. Now 95-100% on 2L NC. Educated and encouraged incentive spirometer.
[2024-10-23 14:29] LABS: APTT > 200 Sec (23.4-35.0)
--- NOTE | 2024-10-23 14:49 | CM ---
CM following re: discharge planning.
Reviewed pt's chart, met with pt and pt's daughter at bedside. Pt is [place] speaking female.
Pt is Postop day 1 status post initiation of pharmacologic venous thrombolysis.
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
D/C plan: home with anticipated no needs. Daughter to transport at discharge.
CM will follow with discharge plan updates as hospitalization progresses
[2024-10-23] MEDS: ORETIC 25 MG PO (15:16)
--- NOTE | 2024-10-23 17:40 | PTCARENOTE ---
Neurovascular checks WNL. Left DP weak palpable pulse. Left PT via doppler. Small amount of bloody drainage on left posterior knee dressing. All other assessments unchanged. Heparin gtt per protocol.
[2024-10-23] MEDS: TOPROL XL PO (18:51)
[2024-10-23 19:06] LABS: Beta-2-Glycoprotein I Ab. IgG <10 SGU (<=20); Beta-2-Glycoprotein I Ab. IgM 15 SMU (<=20)
--- NOTE | 2024-10-23 20:00 | PTCARENOTE ---
Rec'd pt resting in bed, pt speaks Vietnamese but can understand some haitian,denies pain, 1' AV block, bp stable, Left pop site intact- sm amt drainage on dsg, leg w/ reta wrap, weak left pedal pulses, left post tibial w/ doppler, + LE edema, O2 2
liters nc, lungs decr in bases, sat 98, enc to use IS- reaches 1000, + bowel sounds, jany diet, abd obese, soft, no n/v, baca draining yellow urine, hep gtt at 1300 units/hr
[2024-10-23] MEDS: HEPARIN 25000 UNITS/250 ML IV (20:27)
[2024-10-23] MEDS: LIPITOR 20 MG PO (21:52)
[2024-10-23 22:10] LABS: APTT > 200 Sec (23.4-35.0)
--- NOTE | 2024-10-23 22:10 | PTCARENOTE ---
ptt > 200- B NENA Fajardo notified, hep gtt off x 2 hr per protocal
[2024-10-24] VITALS (21 sets, daily range): BP systolic 113–146; BP diastolic 48–78; PULSE 75–107; BMI 38.2
--- NOTE | 2024-10-24 00:12 | PTCARENOTE ---
sys reviewed, changes noted, hep gtt restarted at 900 units/hr per protocal, CHG bath done, linens changed
[2024-10-24 02:17] LABS: Beta-2-Glycoprotein I Ab. IgA <10 SAU (<=20)
--- NOTE | 2024-10-24 04:07 | PTCARENOTE ---
sys reviewed, changes noted
--- NOTE | 2024-10-24 06:21 | W.PN.HOSP.TC ---
Today's Communication/Plan
-
Likely downgrade med surg later today pending repeat H&H noon
checking B12 Folate Iron studies
transition to DOAC later this evening if H&H stable
Assessment / Plan
Assessment / Plan
Physical Exam
General: Well Developed, Well Nourished, No Apparent Distress and Comfortable
HEENT: NormoCephalic, Anicteric, Moist mucous membranes and Atraumatic
Respiratory: Clear
Cardiac: S1/S2 and Regular Rhythm
GI: Soft, Non Tender, Non Distended and Normal Bowel Sounds
Musculoskeletal: No Clubbing, No Cyanosis, LLE ext KETTY wrap in place clean dry intact
Skin: Warm
Neuro: AO x 3 and Nonfocal/grossly intact
Hematologic/Lymphatic: No Lymphadenopathy
Psych: Calm
79 y.o female with extensive L lower extremity DVT involving all the veins of the extremity. No apparent symptom on the right. HD stable. Denies SOB, chest pain, palpitations or lightheadedness. No recent travels. No flu like symptoms. No new
medications. No recent surgeries, injuries or hospital stays. She reportedly sat for 6 hours 1 day ago but otherwise is generally mobile. No family history of blood clots. No personal history of any malignancy.
PLAN:
#Extensive LLE DVT - Pulses intact and no current Cerulea dolens as she has no tenderness to touch, no constant severe aching pain and minimal skin changes. Given findings on U/S patient may have more extensive clot burden and possibly May Thurner
syndrome. No symptoms c/w PE on presentation.
- IV heparin
- CT chest/abd/pelvis appreciated no PE, extensive thrombus Lt common/internal/external iliac and common/superficial femoral veins, borderline aneurysm ascending aorta 4 cm, possible age indeterminate renal ischemia/ATN b/l, duodenal diverticulum,
left renal cysts, 0.3 cm subpleural Rt middle lobe nodule.
- Vascular consultation appreciated OR 10/22/24 left lower extremity catheter directed venous thrombolysis initiated 10/23/24 Mechanical Thrombolysis Lt iliac system, balloon angioplasty and stenting left common iliac vein stenosis
- patient cleared to transition to oral anticoagulation as per vascular
- covid 19 neg
- hematology consultation appreciated
Mild Anemia on admission
continues to trickle down since admission initial 10.1 trickle down to 8.7 low
possible acute blood loss from prior procedures
possible underlying chronic anemia
10/24/24 type and screen, repeat H&H at noon
check B12 Folate Iron studies
HTN
-continue home hctz, losartan, metoprolol with holding parameters
dvt ppx hep gtt
Code Status - Full code
discussed with patient and patient's daughter Jaycee who provided French translation.
Total Critical Care Time__40___ minutes. I was immediately available to the patient and staff. I personally examined, reviewed labs, diagnostic images/reports, interpretations, treatment plans, discussed patient care with other providers and
family or caregivers (if patient is unable to make decisions), entered orders as appropriate and documented the medical record.
Anticipated Discharge: 24 - 48 hours
Subjective/Interval History
-
Date of Service: October 24, 2024
LLE in KETTY wrap reporting pain improved with pain meds received. Daughter Jaycee present during evaluation.
Objective Data
-
Labs:
Laboratory Results
10/23/24 10/24/24
21:20 06:09
WBC Pending
Hgb Pending
Hct Pending
Plt Count Pending
APTT > 200 H* Pending
Sodium Pending
Potassium Pending
Chloride Pending
Carbon Dioxide Pending
BUN Pending
Creatinine Pending
Glucose Pending
Calcium Pending
Vital Signs:
Vital Signs
Temp Pulse Resp BP Pulse Ox
98.5 F 64 16 138/59 97
10/24/24 04:00 10/24/24 06:00 10/24/24 06:00 10/24/24 06:00 10/24/24 06:00
I&O
10/22/24 10/23/24 10/24/24
06:59 06:59 06:59
Intake Total 1720 / 1855 1762 / 1762
Output Total 705 / 705 2460 / 2460
Balance 1015 / 1150 -698 / -698
[2024-10-24 06:29] LABS: APTT 67.6 Sec (23.4-35.0); Hematocrit 26.4 % (37.0-47.0); Hemoglobin 8.7 g/dL (12.0-16.0); Mean Corpuscular Hgb 28.1 pg (27.0-31.0); Mean Corpuscular Volume 85.2 fL (81.0-99.0); Mean Platelet Volume 9.7 fL (7.4-10.4); Platelet Count 154 10^3/uL (130-400); Red Cell Dist. Width 14.3 % (11.5-14.5); White Blood Cell Count 7.1 10^3/uL (4.8-10.8)
[2024-10-24 06:43] LABS: Blood Urea Nitrogen 32 mg/dl (7-17); Calcium 9.1 mg/dl (8.4-10.2); Carbon Dioxide 30 mmol/L (22-30); Chloride 108 mmol/L (98-107); Estimated Creatinine Clearance 51 ml/min; Glucose 119 mg/dl (70-99); Phosphorus 3.2 mg/dl (2.5-4.5); Potassium 4.3 mmol/L (3.5-5.1); Sodium 140 mmol/L (135-145); eGFR 57.31
[2024-10-24] MEDS: HEPARIN 3900 UNITS IV (06:44)
[2024-10-24 07:43] LABS: Total Iron Binding Capacity 251 ug/dl (265-497)
--- NOTE | 2024-10-24 08:04 | W.PN.INTV ---
Addendum entered and electronically signed by Emy Lowry MD 10/24/24 11:50:
Patient seen and examined independently by myself. Resident note reviewed below, agree with assessment and plan.
Presently, patient is comfortable without any shortness of breath, chest pain, nausea, abdominal pain. Her left leg pain is since resolved after receiving Dilaudid this morning. Daughter at bedside is upset that she received Dilaudid. Patient had
worsening pain this morning, did not have significant pain throughout the night discussing with nursing
Negative fluid status noted. Patient 94% on 2 L, 87% on room air
Chest exam is clear, no murmurs
Left lower extremity wrapping in place
Data reviewed
Hemoglobin 8.7, normal creatinine
Vascular correspondence reviewed
A/P
At this time, patient appears to be overall improved with less leg pain since admission, required Dilaudid this morning
Daughter would like to avoid Dilaudid. Discussed discontinuing Dilaudid and continuing Tylenol but reviewed with daughter that Tylenol may take some longer time to work. After discussing this, daughter would like to continue Dilaudid as needed but
we will try to minimize given her concern
Follow-up hemoglobin per vascular surgery
They are strongly recommending continued Scot wrap and elevate leg is much as possible
Reviewed this with daughter at bedside as she does not like the wrap
Plan to transition to oral anticoagulation later today
Recommend 3 to 6 months of anticoagulation
Family history of thromboembolic disease noted
PT/OT, out of bed to chair
Reviewed with daughter at length CT findings, small nodule
Reviewed possible underlying sleep disordered breathing
Reviewed what symptoms to watch out for given thromboembolic disease
Outpatient pulmonary follow-up set up, instructions left in chart
Answered all questions. Daughter appreciative of care
Okay to downgrade out of ICU. We will sign off. Please call with questions
Original Note:
Today's Communication / Plan
Recommendations
Wean O2 as tolerated
Maintain Scot wrap
Transition heparin to oral anticoagulant
Downgrade from ICU
Outpatient follow-up with vascular
Outpatient follow-up with pulmonary in 2 to 3 months
Assessment
-
79-year-old female with extensive left lower extremity DVT
# Acute extensive left lower extremity DVT including iliofemoral DVT.
# Anemia
# Elevated serum creatinine; resolved
# Hyperglycemia
# Incidental finding of 0.3cm subpleural right middle lobe lung nodule
# There is a family history of blood clots, eldest son with history of recurrent clots
Plan:
Vascular following; s/p Mechanical thrombolysis left iliac system, Balloon angioplasty and stenting of left common iliac vein stenosis POD #1
Maintain the SCOT Wrap, elevate LE
Currently on heparin drip; ok to transition to oral neurovascular; defer to hospitalist
Recheck H&H at noon
d/c baca
Senna today for constipation
Continue home losartan, HCTZ and metoprolol for blood pressure control
Anti-cardiolipin antibody pending, Anti-beta2 glycoprotein antibodies unremarkable
Wean O2 as tolerated to maintain O2 sat > 92%
Recommend follow-up with pulmonary in 2 to 3 months at which time imaging can be discussed in further detail but based on current guidelines, would recommend CT chest in 1 year
Data:
CT Chest/abd/pelvis Angio W/wo 10/22/24
IMPRESSION:
Extensive occlusive or near occlusive thrombus within the left common iliac, internal iliac, external iliac, common femoral and visualized superficial femoral veins. No thrombus confirmed within the IVC.
No findings to suggest central pulmonary embolism.
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
Bilateral renal heterogeneity with striated nephrograms. This may reflect sequela of age-indeterminate ischemia/ATN. Infection would be less likely. Suggest correlation with urinalysis.
Additional findings: Duodenal diverticulum and left renal cysts.
0.3 cm subpleural right middle lobe lung nodule. The [facility] Pulmonary Nodule Advisory Board hotline was called with the findings on 10/22/2024 8:24 AM.
Subjective Dataa
Subjective Data
Date of Service:
Date of Service: October 24, 2024
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
Subjective:
Patient seen and evaluated in the a.m. Patient lying in the bed comfortably. Offers no new complaint. Vitals today in the morning BP 138/59, pulse 64, RR 16, temp 98.4, O2 sats 100% on 2 L O2 via nasal cannula
Review of Systems
General: Fever (no)
Cardiopulmonary: Cough (no) and Chest Pain (no)
GI: Abdominal Pain (no)
Neuro: Headache (no)
Genitourinary: Baca
Objective Data
Data Reviewed
Vital Signs / I&O / Oxygen:
Vital Signs
Temp Pulse Resp BP Pulse Ox
98.4 F 64 16 138/59 97
10/24/24 07:17 10/24/24 06:00 10/24/24 06:00 10/24/24 06:00 10/24/24 06:00
Intake and Output
10/23/24 10/24/24 10/25/24
06:59 06:59 06:59
Intake Total 1720 / 1855 1762 / 1762
Output Total 705 / 705 2460 / 2460
Balance 1015 / 1150 -698 / -698
SaO2 97
Nasal Cannula flow liters per 2
minute
Physical Exam
General: Comfortable
Cardiovascular: S1-S2 and Regular Rhythm
Respiratory: Clear, Non-Labored Respirations and Other (O2 saturation 100% on 2 L)
GI: Soft and Non Distended
Neurology: Awake and Alert
Skin: Warm and Dry
Labs/Micro/Reports
Lab Data
10/24/24 06:09
Laboratory Results
10/23/24 10/23/24 10/23/24
13:44 17:15 21:20
PT 16.6 H Cancelled
INR 1.31 Cancelled
APTT > 200 H* Cancelled > 200 H*
10/23/24 10/24/24
23:15 06:09
PT Cancelled
INR Cancelled
APTT Cancelled 67.6 H
[2024-10-24] MEDS: DILAUDID 0.5 MG IV (08:09)
[2024-10-24] MEDS: FLUSH (NSS) 1 FLUSH IV (08:10)
--- NOTE | 2024-10-24 08:11 | W.PN.VS ---
Today's Communication / Plan
-
Seen and assessed with Dr Wise
Assessment/Plan
-
Assessment: 79-year-old female with extensive left lower extremity DVT, status post Duplex assisted cannulation of left popliteal vein. Ascending left lower extremity venogram and central venogram. Initiation of catheter directed thrombolysis.
POD 1
1. Diagnostic left lower extremity venogram
2. Diagnostic left iliac venogram
3. Diagnostic venogram, inferior vena cava
4. Mechanical thrombolysis left iliac system using AngioJet Zelante catheter
5. Balloon angioplasty and stenting of left common iliac vein stenosis (Cook Vena 16 mm x 100 mm; post dilated with 16 mm angioplasty balloon)
6. Intravascular ultrasound left femoral vein, left common femoral vein, left external iliac vein, left common iliac vein, inferior vena cava
Plan:
Continue KETTY wrap to thigh, elevate leg as much as possible
Ok to transition or oral anticoagulation
PT/OT
Will add office follow up to the chart, please call with questions/concerns
Subjective Data
-
Date of Service: October 24, 2024
Pt seen at bedside this am with Dr Wise. No events overnight, ketty wrap c/d/i. Pt denies pain.
Objective Data
-
Vital Signs
Temp Pulse Resp BP Pulse Ox
98.4 F 64 16 138/59 97
10/24/24 07:17 10/24/24 06:00 10/24/24 06:00 10/24/24 06:00 10/24/24 06:00
Intake and Output
10/23/24 10/24/24 10/25/24
06:59 06:59 06:59
Intake Total 1720 / 1855 1762 / 1762
Output Total 705 / 705 2460 / 2460
Balance 1015 / 1150 -698 / -698
Intake:
Oral fluids 100 / 100 580 / 580
Amount of oral supplement(s)
consumed
IV fluids (Total) 1620 / 1755 1169 / 1169
HEPARIN 64959 UNITS/250 ML , 126 / 126
000 units In 250 ml @ 500 UNITS
/HR 5 mls/hr FAMILIA SHEATH .Q24H
NELA Rx#:[id number]
Nss 1,000 ml @ 46 mls/hr INF 552 / 598 138 / 138
CATH .[id number] NELA Rx#:[id number]
Nss 1,000 ml @ 80 mls/hr IV . 960 / 1040 800 / 800
[id number] NELA Rx#:[id number]
TPA 48 / 52
heparin gtt
Output:
Urine, Iverson 705 / 705 2460 / 2460
Other:
Number of approximated SMALL 1
amounts of urine
Number of approximated MODERATE 2
amounts of urine
Lab Results
10/24/24 06:09
Calcium 9.1 mg/dl (8.4-10.2) 10/24/24 06:09
Phosphorus 3.2 mg/dl (2.5-4.5) 10/24/24 06:09
Magnesium 2.0 mg/dl (1.6-2.3) 10/24/24 06:09
Total Bilirubin 1.4 mg/dl (0.2-1.3) H 10/23/24 05:00
Direct Bilirubin 0.1 mg/dl (0.0-0.4) 10/23/24 05:00
AST 27 U/L (14-36) 10/23/24 05:00
ALT 26 U/L (0-35) 10/23/24 05:00
Alkaline Phosphatase 74 U/L (38-126) 10/23/24 05:00
Total Protein 6.0 g/dl (6.3-8.2) L 10/23/24 05:00
Albumin 3.8 g/dl (3.5-5.0) 10/23/24 05:00
Physical Exam
-
No apparent distress, resting bed comfortably
No tachycardia
No dyspnea
ABD rotund, nontender, nondistended
Left lower extremity with improvement in edema, +1 edema, all soft, no evidence of hematoma at lysis catheter insertion site, catheter site CDI
Left foot warm, +1 palpable DP pulse
--- NOTE | 2024-10-24 09:00 | PTCARENOTE ---
Rec'd pt at 0700 resting in bed. Pulse check completed with off going RN. Vascular surgery in this am and L popliteal dressing removed. Area open to air and sl ecchymosis but no swelling or drainage. Scot wraps applied from foot to upper thigh/groin.
+ PT and DP pulses. DP pulse on the L is weak to palpation but both are easily audible with the doppler. +1 LLE edema. Pt is awake alert and oriented. Does speak primarily Egyptian but does understand some direction. Pts daughter in and wants to
interpret for her when she is here but asked for a automotive tire technician when she is not- Business Quality Assurance Analyst I PAD obtained. Speech is clear. Denies headache or dizziness. Did admit to 10/10 L posterior ankle discomfort- Scot wrap checked and site sl reddened. Gauze
pad applied then scot wrap back over. Medicated with Dilaudid 0.5 mg IV at 0810 for discomfort with resolution of pain by 0845. Daughter expressed concern/frustration that her mother had received a narcotic for the discomfort. Informed by both this
RN and Dr. Lowry that it was appropriate for the level of pain. GARCIA. Respirs are unlabored on 2L nc with sats of 99%. Tried on RA but sats dipped to 87%-placed back on 2L and will attempt later. BS are decreased at the bases with few R base
crackles. Getting about 2000ml on IS.Monitor SR- Sbrady with 1st'avb MS. 22-.24. Denies chest pain. VS as documented. ABd is round and soft with + hypoactive BS. Denies nausea but did not want anything for breakfast currently. Did take AM meds with
water. Thermistor baca is intact and draining yellow urine. Plan is to dc this am. IV Heparin infusing via RAC IV site at 1100 units/hr. Capped int inact R wrist. Site wnl. Pt repositioned. Call butler in reach. Plan of care reviewed.
--- NOTE | 2024-10-24 09:30 | PTCARENOTE ---
Iverson cath removed per Vasucular team who was in earlier.
[2024-10-24] MEDS: COZAAR 100 MG PO (09:49)
[2024-10-24] MEDS: ASPIR LOW (ENTERIC COATED) 81 MG PO (09:49)
[2024-10-24] MEDS: SENOKOT-S 1 TABLET PO (09:51)
[2024-10-24 09:57] LABS: Folate 14.8 ng/ml (2.76-20); Vitamin B12 883 pg/ml (239-931)
--- NOTE | 2024-10-24 10:45 | PTCARENOTE ---
Has been resting. Denied pain at rest. Currently assisted with assist of 2 oob to the chair- able to bear weight but very weak walking - discomfort trying to move the L leg/foot. pulses are unchanged. L foot remains warm. Denies dizziness. Did not
want anything for breakfast. Heparin gtt continues at 1100 units/hr. Currently sitting oob in the chair. Call butler in reach.
--- NOTE | 2024-10-24 11:50 | PTCARENOTE ---
Pt assisted to the BSC for yellow urine. Weak bearing wt on the L leg but able to bear wt. VS as documented. Pt tried again on RA and sats are 96%. Pt denies shortness of breath. Does admit to some tenderness at L popliteal area. Site unchanged and
pt does not want any Tylenol currently. Daughter at the bedside and call butler in reach.
[2024-10-24 13:03] LABS: Hematocrit 28.8 % (37.0-47.0); Hemoglobin 9.4 g/dL (12.0-16.0)
[2024-10-24 13:15] LABS: APTT 126.6 Sec (23.4-35.0)
--- NOTE | 2024-10-24 13:35 | PTCARENOTE ---
Pt remains sitting oob in the chair and states she is overall confortable. Ate some liunch- no c/o nausea. Labs sent at 1250 as ordered currently resulted. PTT 126.6 and Heparin gtt decreased to 900 units/hr via [facility] IV Site. Plan is to DC when
ELiquis is started at 1999. Will sent additional ABO2. Pulses unchanged. Call butler in reach.
--- NOTE | 2024-10-24 14:49 | PTCARENOTE ---
Report called to [address] [place] [address]. Pt back on BSC for yellow urine. Small amt of oozing from L popliteal site- site is soft and bruised- small amt of bloody drainage. Redressed with 4x4 and KETTY wrap. Pt used the wallker to get back to bed and actually did
better with ambulation with the walker - still weak but more steady. Currently physical therapy in to work with pt ambulated in the hallway with the walker. Will then transfer pt to [address] [place] [address]. Pts daughter at the bedside and aware of plan of care
[2024-10-24] MEDS: ORETIC 25 MG PO (15:00)
--- NOTE | 2024-10-24 16:02 | PTCARENOTE ---
Patient transferred into room 2126 from ICU. VSS, patient AAOX3 but primarily Djiboutian speaking, daughter at bedside for transfer and language line placed in room. Doppler pulses and neurovascular checks performed at bedside with Gloria BREEDER SERVICE TECHNICIAN.
Patient denies pain at this time, call butler placed within reach, hep gtt infusing at 9ml/hr through R AC, infusion to be stopped tonight at 1999 when patient initiated on PO eliquis.
[2024-10-24] MEDS: TOPROL XL 50 MG PO (17:24)
[2024-10-24] MEDS: LIPITOR 20 MG PO (20:08)
[2024-10-24] MEDS: ELIQUIS 10 MG PO (20:08)
[2024-10-24 21:49] LABS: Cardiolipin IgA Antibody <10 APL (<=11); Cardiolipin IgM Antibody 12 MPL (<=12); Cardiolipin Igg Antibody <10 GPL (<=14)
[2024-10-25 02:17] LABS: Phosphatidylserine Ab, IgA 0 APS (0-19); Phosphatidylserine Ab, IgG 4 GPS (0-15); Phosphatidylserine Ab, IgM 23 MPS (0-21)
[2024-10-25 03:11] VITALS: BP 143/66
--- NOTE | 2024-10-25 06:08 | W.PN.HOSP.TC ---
Today's Communication/Plan
-
Discharge
Assessment / Plan
Assessment / Plan
Physical Exam
General: Well Developed, Well Nourished, No Apparent Distress and Comfortable
HEENT: NormoCephalic, Anicteric, Moist mucous membranes and Atraumatic
Respiratory: Clear
Cardiac: S1/S2 and Regular Rhythm
GI: Soft, Non Tender, Non Distended and Normal Bowel Sounds
Musculoskeletal: No Clubbing, No Cyanosis, LLE ext KETTY wrap in place clean dry intact
Skin: Warm
Neuro: AO x 3 and Nonfocal/grossly intact
Hematologic/Lymphatic: No Lymphadenopathy
Psych: Calm
79 y.o female with extensive L lower extremity DVT involving all the veins of the extremity. No apparent symptom on the right. HD stable. Denies SOB, chest pain, palpitations or lightheadedness. No recent travels. No flu like symptoms. No new
medications. No recent surgeries, injuries or hospital stays. She reportedly sat for 6 hours 1 day ago but otherwise is generally mobile. No family history of blood clots. No personal history of any malignancy.
PLAN:
#Extensive LLE DVT
#May Thurner syndrome
- IV heparin transitioned to Eliquis
- CT chest/abd/pelvis appreciated no PE, extensive thrombus Lt common/internal/external iliac and common/superficial femoral veins, borderline aneurysm ascending aorta 4 cm, possible age indeterminate renal ischemia/ATN b/l, duodenal diverticulum,
left renal cysts, 0.3 cm subpleural Rt middle lobe nodule.
- Vascular consultation appreciated OR 10/22/24 left lower extremity catheter directed venous thrombolysis initiated 10/23/24 Mechanical Thrombolysis Lt iliac system, balloon angioplasty and stenting left common iliac vein stenosis
- patient cleared to transition to oral anticoagulation as per vascular
- hematology consultation appreciated hypercoagulable work up unremarkable.
- Publications Inspector/Pulmonology consult appreciated
Mild Anemia on admission
10.1 trended down to low 8.7
possible acute blood loss from prior procedures
B12 Folate Iron studies wnl
Hgb since improved from 8.7 to 9.3 on discharge, no need for blood transfusion during hospitalization.
HTN
-continue home hctz, losartan, metoprolol with holding parameters
dvt ppx Eliquis
Code Status - Full code
Medically stable for discharge home with home services and outpatient follow up recommendations.
discussed with patient (international language line provided Turkmen translation) and patient's daughter Jaycee
Total Time Preparing Discharge __40 minutes including examination of the patient, summary of the hospital stay, instructions for continuing care to all relevant caregivers; and preparation of discharge records, prescriptions, and referral
forms if necessary.
Anticipated Discharge: Today
Subjective/Interval History
-
Date of Service: October 25, 2024
No acute distress. resting comfortably in bed. Overall patient reports feeling well. Denies significant pain at this time. Eager to go home. Interviewed with international Language line Turkmen shirt turner.
Objective Data
-
Labs:
Laboratory Results
10/24/24 10/25/24
19:30 05:38
WBC Pending
Hgb Pending
Hct Pending
Plt Count Pending
APTT Cancelled
Sodium Pending
Potassium Pending
Chloride Pending
Carbon Dioxide Pending
BUN Pending
Creatinine Pending
Glucose Pending
Calcium Pending
Vital Signs:
Vital Signs
Temp Pulse Resp BP Pulse Ox
98.2 F 71 16 143/66 97
10/25/24 03:11 10/25/24 03:11 10/25/24 03:11 10/25/24 03:11 10/25/24 03:11
I&O
10/23/24 10/24/24 10/25/24
06:59 06:59 06:59
Intake Total 1720 / 1855 1762 / 1773 416 / 416
Output Total 705 / 705 2460 / 2460 975 / 975
Balance 1015 / 1150 -698 / -687 -559 / -038
[2024-10-25 06:29] LABS: Hematocrit 28.1 % (37.0-47.0); Hemoglobin 9.3 g/dL (12.0-16.0); Mean Corp Hgb Conc. 33.1 g/dL (33.0-37.0); Mean Corpuscular Hgb 28.6 pg (27.0-31.0); Mean Corpuscular Volume 86.5 fL (81.0-99.0); Mean Platelet Volume 9.9 fL (7.4-10.4); Platelet Count 174 10^3/uL (130-400); Red Blood Cell Count 3.25 10^6/uL (4.20-5.40); Red Cell Dist. Width 14.1 % (11.5-14.5); White Blood Cell Count 5.4 10^3/uL (4.8-10.8)
[2024-10-25 06:53] LABS: Blood Urea Nitrogen 32 mg/dl (7-17); Calcium 9.8 mg/dl (8.4-10.2); Carbon Dioxide 30 mmol/L (22-30); Chloride 107 mmol/L (98-107); Estimated Creatinine Clearance 51 ml/min; Glucose 110 mg/dl (70-99); Magnesium 1.8 mg/dl (1.6-2.3); Phosphorus 3.8 mg/dl (2.5-4.5); Potassium 4.4 mmol/L (3.5-5.1); Sodium 141 mmol/L (135-145); eGFR 57.31
[2024-10-25 07:55] VITALS: BP 150/63
--- NOTE | 2024-10-25 08:39 | W.PN.ONC2 ---
Today's Communication / Plan
-
.
Impression
Impression
LLE DVT
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
s/p thrombolytics, angioplasty, and stenting of left common iliac vein stenosis
normal anticardiolipin and beta 2 glycoprotein
Anemia
Plan
Plan
-DOAC per vascular surgery
-Incidental finding of 0.3cm subpleural right middle lobe lung nodule. The [facility] Pulmonary Nodule Advisory Board was notified of the findings
-no role for iron repletion with ferritin >100. No B12 or folate deficiency
-continue OP follow up with vascular surgery, no further role for hematology
Hematology will sign off, please reach out for any further questions or concerns
Subjective/Objective
Subjective
no new complaints
LLE pain controlled
compliant with erta wrap
Vital Signs:
Vital Signs
Temp Pulse Resp BP Pulse Ox
98.2 F 71 16 143/66 97
10/25/24 03:11 10/25/24 03:11 10/25/24 03:11 10/25/24 03:11 10/25/24 03:11
Lab Results:
Laboratory Data
WBC 5.4 10^3/uL (4.8-10.8) 10/25/24 05:38
Hgb 9.3 g/dL (12.0-16.0) L 10/25/24 05:38
Plt Count 174 10^3/uL (130-400) 10/25/24 05:38
PT Cancelled 10/23/24 23:15
INR Cancelled 10/23/24 23:15
APTT Cancelled 10/24/24 19:30
eGFR 57.31 10/25/24 05:38
[2024-10-25] MEDS: ELIQUIS 10 MG PO (08:54)
[2024-10-25] MEDS: COZAAR 100 MG PO (08:57)
[2024-10-25] MEDS: ASPIR LOW (ENTERIC COATED) 81 MG PO (08:58)
[2024-10-25 09:11] LABS: Iron 54 ug/dl (37-170)
[2024-10-25 11:30] VITALS: BP 144/63
--- NOTE | 2024-10-25 12:30 | W.PN.UPDATE ---
Update Note
Progress Note Update
Patient is in need of a walker to prevent falls due to unsteady gait.
--- NOTE | 2024-10-25 13:02 | CM ---
Macanese speaking patient with Dx LLE DVT. Room air. PT/OT recommend HH.
Contacted HH Agencies:
[facility]; no Macanese speaking nurse available.
[facility]; they do not accept her Medicaid.
[facility] ; they do not accept her Medicaid.
[facility]; they do not cover [facility].
[facility]; no Macanese speaking nurse and they do not accept her Medicaid.
Message from Cecille, PT; [employer] does not work with Medicaid to cover the walker that they would issue. CM can look into if other DME companies that work with Medicaid to cover a walker, or other option is that PT would issue a
walker and they�ll get a $70 bill for it.
Spoke with [facility]; referral for SN/PT/OT. They can accept and she ordered a RW from [facility] that they agreed to deliver tomorrow. Prerna spoke to the daughter and she is ok with that.
Spoke with patient's daughter Jaycee;
provided daughter with information how to obtain patient's hospital records through Medical Records.
Daughter states patient has no copay for her medications - no Eliquis card needed.
Informed Jaycee that CM attempted to find accepting HH agency with Macanese speaking staff, however as none accepted we were able to refer to [facility] and she agrees. Daughter aware of RW delivery. She will provide transport home today between 3-4pm.
Plan home today with [facility]N, with RW, with daughter.
--- NOTE | 2024-10-25 13:10 | VNURNOTE ---
Food Service Team Member spoke with dgt jessica via phone to discuss [facility] nurse/therapy, visits, schedule and homebound status. Dgt is agreeable and understands that visits at home will be 2-3 x per week to assess and teach medical management.
[facility] contact information provided. Patient is aware that [facility] will contact them for start of care after discharge from .
[facility] referral completed in Care Port.
Walker ordered from [facility] to be delivered to patients home 10/26/24. Confirmed receipt of order with Bea at [facility].
[2024-10-25] MEDS: ORETIC 25 MG PO (15:08)
--- NOTE | 2024-10-25 15:16 | W.DCSUMMARY ---
Discharge Summary
Discharge Data
Date of Admission: 10/22/24
Date of Discharge: 10/25/24
-
Pending Results: No
Discharge Plan
-
Patient Disposition: Home with Home Care
Discharge Diagnosis/Procedures: Extensive LLE DVT
May Thurner syndrome
extensive thrombus Left common/internal/external iliac and common/superficial femoral veins borderline aneurysm ascending aorta 4 cm
0.3 cm subpleural Right middle lobe nodule
Left Lower extremity catheter directed venous thrombolysis
Mechanical Thrombolysis Lt iliac system, balloon angioplasty and stenting left common iliac vein stenosis
Anemia
Hypertension
Obesity
Condition: Fair
Diet: As tolerated
Activity: No strenuous activity
Additional Activity: Please do not lift anything greater than 10 pounds or partake in strenuous activity for 2 weeks
Driving Restrictions: No driving for 48 hours
Bathing Restrictions: OK to Shower
Blood Work: Repeat CBC Tuesday or Tuesday following your discharge. Results to be forwarded to your primary care provider and Vascular surgeon. Script provided to facilitate.
Others Tests: Your repeat venous ultrasounds are scheduled on 11/23/24 at 2pm and 3pm here at [facility]
Other Services: VN, PT and OT
Activity Restrictions/Additional Instructions:
Please follow up with primary care provider in 1 week of discharge, keep your appointment with vascular surgery, and follow up with Pulmonology in 2-3 months of discharge.
As per Hematology, your hypercoagulable work up was unremarkable. No need to follow up with Hematology at this time.
Aspirin has been prescribed for your left common iliac vein stent. Please follow up with vascular surgeon before considering to stop
Eliquis has been prescribed for deep vein thrombosis (DVT). Continue with 10 mg twice day through Tuesday morning 10/31/24 (to complete loading dose regimen) then reduce to 5 mg twice a day (maintenance dose) from then on. For provoked DVT, it
is recommended to continue with anticoagulation/Eliquis for at least 3-6 months. Please follow up with primary care provider, pulmonology, and/or Vascular surgeon to determine when safe to stop.
Please take medications as prescribed/recommended and follow up with primary care provider and/or other healthcare provider involved in your care for refills and/or further adjustments to your medication regimen as necessary.
Stand Alone Forms: DC Instr - Vascular OR
Referrals:
Emy Lowry MD [Active] -
(2-3 mo with Alen
lung nodule and hx of extensive LLE DVT
discuss possible sleep apnea)
Hector Bermeo MD [Family Provider] - in one week
Alicia Enamorado CRNP [Specified Professional Personl] - 11/26/24 9:45 am
Prescriptions:
New
aspirin 81 mg Tablet,Delayed Release (Dr/Ec)
81 mg PO DAILY Qty: 30 0RF
Eliquis 5 mg tablet
5 mg PO DIRECTED Qty: 90 0RF
Rx Instructions:
10 mg twice a day thru 10/31/24 morning
then start 5 mg twice day evening 10/31/24
Continued
losartan 25 mg Tablet
100 mg PO DAILY
hydrochlorothiazide 25 mg Tablet
25 mg PO DAILY
lorazepam [Ativan] 1 mg tablet
1 mg PO BID PRN (Reason: Anxiety) Qty: 14 0RF
Patient Comments:
10/22/24: Per PDMP, filled once on 04/21/24 #14 for 7 days
metoprolol succinate 25 mg Tablet Extended Release 24 Hr
50 mg PO QPM
atorvastatin [Lipitor] 20 mg Tablet
20 mg PO HS
Discharge Orders:
Discharge Patient (As Directed); Ordered 10/25/24
Ordered By: Marina Fox
Discharge Date and Time
Print Language: UPPER SORBIAN
[2024-10-25 15:51] VITALS: BP 148/56
--- NOTE | 2024-10-30 11:20 | OID.L.PAT ---
Pulmonary Nodule Pat Letter
- -
10/30/24
MEHDI TINEO
[address] [facility]
[place] [id number]
Blanca HARDING,
A pulmonary nodule was seen on an imaging study done by [facility]. This was reviewed by the [facility] Pulmonary Nodule Advisory Board and the following recommendation was made:
Recommendation: Per Fleischner criteria, no further follow up is recommended unless patient is at increased risk, then consideration for follow up CT Chest is one year.
If you have any questions, please do not hesitate to contact your primary care physician. If you are in need of a Physician, you can go to [email or web address] and click on 'Find a Provider'. Type 'Family Medicine' in the search.
Oncology Nurse Navigator
[facility]
[phone]
--- NOTE | 2024-10-30 11:20 | OID.L.REC ---
Pulmonary Nodule Follow Up
- Recommendation
10/30/24
Pulmonary Nodule Review Recommendations
Your patient, MEHDI TINEO, had a pulmonary nodule seen on an imaging study done on 10/22/24 in the [facility]iology Department.
This was reviewed by the [facility] Pulmonary Nodule Advisory Board and the following recommendation was made:
Recommendation: Per Fleischner criteria, no further follow up is recommended unless patient is at increased risk, then consideration for follow up CT Chest is one year.
If you have any questions please do not hesitate to contact us.
Sincerely,
Oncology Nurse Navigator
[facility]
[phone]
== END 2024-10-25 16:49 | disposition home health service (06) | DRG 271 ==
LOC: 2 NORTH 01:15
PROVIDERS: Nurse Practitioner; Surgery; Surgery Vascular Surgery; ADMITTING PHYSICIAN Internal Medicine; ATTENDING PHYSICIAN Internal Medicine; CONSULT PHYSICIAN Internal Medicine Critical Care Medicine; EMERGENCY PHYSICIAN Emergency Medicine; FAMILY PHYSICIAN Internal Medicine; OTHER PHYSICIAN Internal Medicine Hematology & Oncology
PROC: B51C1ZA Fluoroscopy of Left Lower Extremity Veins using Low Osmolar Contrast, Guidance (ICD-10-PCS; 2024-10-22)
PROC: 3E03317 Introduction of Other Thrombolytic into Peripheral Vein, Percutaneous Approach (ICD-10-PCS; 2024-10-22)
PROC: 06CG3ZZ Extirpation of Matter from Left External Iliac Vein, Percutaneous Approach (ICD-10-PCS; 2024-10-23)
PROC: B5191ZZ Fluoroscopy of Inferior Vena Cava using Low Osmolar Contrast (ICD-10-PCS; 2024-10-23)
PROC: 06CD3ZZ Extirpation of Matter from Left Common Iliac Vein, Percutaneous Approach (ICD-10-PCS; 2024-10-23)
PROC: 067D3DZ Dilation of Left Common Iliac Vein with Intraluminal Device, Percutaneous Approach (ICD-10-PCS; 2024-10-23)
PROC: B51C1ZZ Fluoroscopy of Left Lower Extremity Veins using Low Osmolar Contrast (ICD-10-PCS; 2024-10-23)
DX: I82.422 Acute embolism and thrombosis of left iliac vein (principal); I87.1 Compression of vein; I82.412 Acute embolism and thrombosis of left femoral vein; D64.9 Anemia, unspecified; I10 Essential (primary) hypertension; E66.9 Obesity, unspecified; Z68.38 Body mass index [BMI] 38.0-38.9, adult; F41.9 Anxiety disorder, unspecified; Z90.49 Acquired absence of other specified parts of digestive tract; Z79.899 Other long term (current) drug therapy; R91.1 Solitary pulmonary nodule; K57.10 Diverticulosis of small intestine without perforation or abscess without bleeding; N28.1 Cyst of kidney, acquired; E78.00 Pure hypercholesterolemia, unspecified; I70.8 Atherosclerosis of other arteries; K59.00 Constipation, unspecified; Z11.52 Encounter for screening for COVID-19
CPT/HCPCS: 36005; 36012; 37187; 37212; 37238; 37252; 71045; 71275; 73564; 74174; 75820; 80048; 80053; 82248; 82607; 82728; 82746; 82962; 83540; 83550; 83735; 84100; 85014; 85018; 85025; 85027; 85049; 85384; 85610; 85730; 86146; 86147; 86148; 86850; 86900; 86901; 87811; 93005; 93971; 96374; 97162; 97166; 99285; C1725; C1753; C1757; C1769; C1876; C1892; C1894; J2997; Q9967

== ENCOUNTER → 2024-11-23 14:06 | Outpatient (REF) | payer MEDICAID, SELFPAY | LOC: RAD 14:06 | PROVIDERS: ATTENDING PHYSICIAN Surgery Vascular Surgery; FAMILY PHYSICIAN Internal Medicine | DX: I82.522 Chronic embolism and thrombosis of left iliac vein (principal) | CPT/HCPCS: 93971; 93978 ==

== ENCOUNTER → 2025-04-01 09:36 | Outpatient (REF) | payer MEDICAID, SELFPAY | LOC: HWRAD 09:36 | PROVIDERS: ATTENDING PHYSICIAN Surgery Vascular Surgery; FAMILY PHYSICIAN Internal Medicine | DX: I87.1 Compression of vein (principal) | CPT/HCPCS: 93978 ==